=== PATIENT | male | born 1955 | race Two or more races ===

== ENCOUNTER 2024-10-05 08:16 | Inpatient (IN) | payer OTHER, MEDICARE, MEDICAID ==
[~2024-10-05] VITALS: Ht 175.3 cm; Wt 96.9 kg
--- NOTE | 2024-10-05 08:30 | ED.PDOC ---
GI ASSESSMENT HPI Comments 69 y.o male with PMH of liver cirrhosis, presents to the ED for a chief complaint of abdominal pain associated with distention. EMS reports patient is coming [facility] with abdominal pain for unknown amount of time. Patient is a poor historian, is unsure of when his symptoms presented and denies any other associating symptoms. Patient does present with ground coffee emesis on gown and vann. Chief Complaint: Abdominal Pain Time Seen by MD: 08:22 Reviewed Notes: Nurses Notes, Eating Disorder Psychologist Notes, Medications, Allergies Allergies: Coded Allergies: NO KNOWN ALLERGIES (Unverified , 10/05/24) Information Source: Patient, Emergency Med Personnel Mode of Arrival: EMS Timing: Other Duration: Since onset Quality: Aching Vomitus: None Stool: Normal Severity: Moderate Recent: None Recent Hx of: None Pain Location: Diffuse Modifying Factors: Nothing Associated sign and symptoms: Abdominal Pain Past Medical History PAST MEDICAL HISTORY: Liver Family History Family History: Reviewed,noncontributory to illness Social History Smoker: Non-Smoker Alcohol: Denies ETOH Use Drugs: Denies Drug Use Lives In: Assisted Care Constitutional: denies: chills, diaphoresis, fatigue, fever, malaise, sweats, weakness, others EENTM: denies: blurred vision, double vision, ear bleeding, ear discharge, ear drainage, ear pain, ear ringing, eye pain, eye redness, hearing loss, mouth pain, mouth swelling, nasal discharge, nose bleeding, nose congestion, nose pain, photophobia, tearing, throat pain, throat swelling, voice changes, others Respiratory: denies: cough, hemoptysis, orthopnea, SOB at rest, shortness of breath, SOB with excertion, stridor, wheezing, others Cardiovascular: denies: chest pain, dizzy spells, diaphoresis, Dyspnea on exertion, edema, irregular heart beat, left arm pain, lightheadedness, palpitations, PND, syncope, others Gastrointestinal: reports: abdomen distended, abdominal pain; denies: blood streaked bowels, constipated, diarrhea, dysphagia, difficulty swallowing, hematemesis, melena, nausea, poor appetite, poor fluid intake, rectal bleeding, rectal pain, vomiting, others Genitourinary: denies: burning, dysuria, flank pain, frequency, hematuria, incontinence, penile discharge, penile sore, pain, testicle pain, testicle swelling, urgency, others Neurological: denies: dizziness, fainting, headache, left sided numbness, left sided weakness, numbness, paresthesia, pre-existing deficit, right sided numbness, right sided weakness, seizure, speech problems, tingling, tremors, weakness, others Musculoskeletal: denies: back pain, gout, joint pain, joint swelling, muscle pain, muscle stiffness, neck pain, others Integumetry: denies: bruises, change in color, change in hair/nails, dryness, laceration, lesions, lumps, rash, wounds, others Allergic/Immunocompromised: denies: Difficulty Healing, Frequent Infections, Hives, Itching, others Hematologic/Lymphatic: denies: anemia, blood clots, easy bleeding, easy bruising, swollen glands, others Endocrine: denies: excessive hunger, excessive sweating, excessive thirst, excessive urination, flushing, intolerance to cold, intolerance to heat, unexplained weight gain, unexplained weight loss, others Psychiatric: denies: anxiety, bipolar disorder, depression, hopeless, panic disorder, schizophrenia, sleepless, suicidal, others All Other Systems: Reviewed and Negative Physical Exam General Appearance: No Apparent Distress, Normal HEENT: Normal ENT Inspection, Pharynx Normal, TMs Normal Neck: Full Range of Motion, Non-Tender, Normal, Normal Inspection Respiratory: Chest Non-Tender, Lungs Clear, No Accessory Muscle Use, No Respiratory Distress, Normal Breath Sounds Cardiovascular: No Edema, No JVD, No Murmur, No Gallop, Normal Peripheral Pulses, Regular Rate/Rhythm Breast Exam: Deferred Gastrointestinal: Diffuse, Distended, Tenderness Genitalia: Deferred Pelvic: Deferred Rectal: Deferred Extremities: No calf tenderness, Normal capillary refill, Normal inspection, Normal range of motion, Non-tender, No pedal edema Musculoskeletal : Apperance: Normal Neurologic: Alert, equipment technician II-XII nml as Tested, No Motor Deficits, Normal Affect, Normal Mood, No Sensory Deficits Cerebellar Function: Normal Reflexes: Normal Skin: Dry, Normal Color, Warm Lymphatic: No Adenopathy Was a procedure done? Was a procedure done?: No GI differential Dx Differential Diagnosis: Hernia, Hepatitis, Inflammatory BD, Pancreatitis, Dehydration X-Ray, Labs, Meds, VS Vital Signs Date Time Temp Pulse Resp B/P (MAP) Pulse Ox O2 Delivery O2 Flow Rate FiO2 10/05/24 09:00 98.8 143 30 116/77 (90) 94 98.8 10/05/24 09:00 143 30 94 Room Air* 0 21 10/05/24 08:18 155 10/05/24 08:16 98.8 127 18 154/82 (106) 94 Lab Test 10/05/24 11:10 10/05/24 10:06 10/05/24 08:58 Range/Units Lactic Acid Level 2.9 *H 2.9 *H 0.4-2.0 mmol/L Troponin I High Sensitivity 8 8 </=54 ng/L White Blood Count 18.7 H 4.4-10.8 10^3/uL Red Blood Count 5.91 H 4.5-5.90 10^6/uL Hemoglobin 18.4 H 13.5-17.5 g/dL Hematocrit 54.7 H 41.0-53.0 % Mean Corpuscular Volume 92.5 80.0-100.0 fL Mean Corpuscular Hemoglobin 31.2 28.0-32.0 pg Mean Corpuscular Hemoglobin Concent 33.7 32.0-36.0 g/dL Red Cell Distribution Width 14.8 H 11.8-14.3 % Platelet Count 299 140-450 10^3/uL Mean Platelet Volume 6.7 L 6.9-10.8 fL Neutrophils (%) (Auto) 80.0 37.0-80.0 % Lymphocytes (%) (Auto) 11.3 10.0-50.0 % Monocytes (%) (Auto) 8.6 0.0-12.0 % Eosinophils (%) (Auto) 0.0 0.0-7.0 % Basophils (%) (Auto) 0.1 0.0-2.0 % Neutrophils # (Auto) 15.0 H 1.6-8.6 10 ^3/uL Lymphocytes # (Auto) 2.1 0.4-5.4 10 ^3/uL Monocytes # (Auto) 1.6 H 0-1.3 10 ^3/uL Eosinophils # (Auto) 0 0-0.8 10 ^3/uL Basophils # (Auto) 0 0-0.2 10 ^3/uL Nucleated Red Blood Cells 0.2 % Prothrombin Time 12.2 H 9.3-11.8 sec Prothrombin Time INR 1.16 H 0.9-1.15 Activated Partial Thromboplast Time 28.0 24.5-34.5 SEC Sodium Level 144 136-145 mmol/L Potassium Level 4.3 3.5-5.1 mmol/L Chloride Level 101 98-107 mmol/L Carbon Dioxide Level 29 20-31 mmol/L Anion Gap 14 5-15 Blood Urea Nitrogen 41 H 9-23 mg/dL Creatinine 1.75 H 0.700-1.30 mg/dL Glomerular Filtration Rate Calc 42 >90 mL/min BUN/Creatinine Ratio 23.4 H 10.0-20.0 Serum Glucose 180 H 74-106 mg/dL Calcium Level 10.6 H 8.7-10.4 mg/dL Magnesium Level 2.3 1.6-2.6 mg/dL Total Bilirubin 1.6 H 0.2-1.0 mg/dL Aspartate Amino Transferase (AST) 23 13-40 U/L Alanine Aminotransferase (ALT) 47 H 7-40 U/L Alkaline Phosphatase 138 H 46-116 U/L Ammonia 37 H 11-32 umol/L Lactate Dehydrogenase 183 120-246 U/L Total Protein 8.3 H 5.7-8.2 g/dL Albumin 4.3 3.2-4.8 g/dL Lipase 25 12-53 U/L Current Medications Medications (Trade) Dose Ordered Sig/Jake Route Start Time Stop Time Status Last Admin Ondansetron HCl (Zofran) 4 mg ONCE ONCE IV 10/05/24 08:30 10/05/24 08:31 DC 10/05/24 08:48 Albumin Human 50 ml @ 100 mls/hr ONCE ONCE IV 10/05/24 09:30 10/05/24 09:59 DC 10/05/24 09:56 Sodium Chloride 1,000 ml @ 1,000 mls/hr Q1H ONCE IV 10/05/24 09:30 10/05/24 10:29 DC 10/05/24 09:57 X-Ray, Labs, Meds, VS Comment This 69-year-old male who [facility] a [facility] presents secondary to abdominal distention and what appears to be hematemesis. Here, he was noted to be hemoconcentrated with a white count of 19, hemoglobin 8.4. He was also noted to have a small-bowel obstruction, cirrhosis, left pleural effusion L4 fracture. Secondary to these multiple life-threatening health issues, the patient will be admitted for further workup and management. Time of 1ST Reevaluation: 08:26 Reevaluation 1ST: Unchanged Patient Education/Counseling: Diagnosis, Treatment, Prognosis Family Education/Counseling: No Family Present Additional Information The following tests were ordered, and results were reviewed by me: LAB, EKG, CT ABD Additional Information was gathered from interviewing the following independent historians: EMS I reviewed and agreed with the following test results read by other providers: CT I discussed treatment and results with medical personnel [place] [id number] Ph: [phone] DIAGNOSTIC IMAGING Diagnostic Imaging Report : [id number] Signed PATIENT: ELISA PARRA ACCT: [id number] UNIT: [id number] : 1955 LOC: ER ROOM / BED: / AGE / SEX: 69 / M ADM STATUS: REG ER SERVICE 3 ORDERING PHYSICIAN: DEEP COX MD PROCEDURE(s): ABPL - CT AB PEL WO CON-NO ORAL OR IV REASON: abdomenal pain ORDER NUMBER(s): [id number], ACCESSION NUMBER(s): [id number] CLINICAL INFORMATION: 69 years old, Male; abdomenal pain. TECHNIQUE: Axial CT images of the abdomen and pelvis were obtained without IV contrast. Coronal and sagittal reformatted images were obtained, reviewed, and stored. Evaluation of the parenchymal organs is limited without IV contrast. Evaluation of the bowel and mesentery is limited without oral contrast. All CT scans at this medical facility are performed using dose modulation techniques as appropriate to a performed exam including the following: Automated exposure control was utilized; adjustment of the MA and/or KV according to patient size; and use of iterative reconstruction technique. CTDIvol = 18.89 mGy DLP = 1201.94 mGy-cm COMPARISON: None FINDINGS: Lung bases: Small right and trace left pleural effusions with overlying atelectasis and/or consolidation. Liver: Nodular contour of the liver with relative enlargement of the left hepatic lobe, may be seen with cirrhosis in the appropriate clinical setting. Small amount of perihepatic ascites. Biliary: Small calcified gallstones in the gallbladder. Gallbladder is mildly distended. Spleen: Unremarkable. Pancreas: Moderately atrophic pancreas. Adrenal glands: Unremarkable. No mass. Kidneys: No hydronephrosis. No renal or ureteral calculi. Aorta/Vascular: No aneurysm or significant calcification. Retroperitoneum: No mass or lymphadenopathy. Bowel/mesentery: Markedly distended stomach and dilated proximal small bowel loops with nondilated distal small bowel loops. Possible transition point in the right hemiabdomen. Appendix is visualized and appears unremarkable. Pelvic organs: Grossly unremarkable. Bladder: Bladder is underdistended and not well evaluated. Abdominal wall: No mass or hernia. Bones: Compression fracture of the L4 vertebral body with up to 70% loss of height, with chronic appearance. IMPRESSION: 1. Suspected small bowel obstruction with possible transition point in the right hemiabdomen 2. Cholelithiasis. Gallbladder is mildly distended. Correlate with clinical findings. If clinically indicated, ultrasound could be obtained to further characterize. 3. Cirrhotic liver morphology. Mild perihepatic ascites. 4. Partially visualized small right and trace left pleural effusions with overlying atelectasis and/or consolidation. 5. Chronic appearing compression fracture of the L4 vertebral body. 6. Additional findings as detailed above. ATED BY: AXEL KEVIN DO DICTATED DATE/TIME: 10/05/24947 SIGNED BY: AXEL KEVIN DO SIGNED DATE/TIME: 10/05/24947 CC: Departure 1 Departure Time of Disposition: 12:35 Impression: Primary Impression: SBO (small bowel obstruction) Additional Impressions: Lumbar vertebral fracture Cirrhosis Ascites Hematemesis Dehydration Disposition: ADMITTED INPATIENT Admit to: Tele Condition: Critical Critical Care Note Critical Care Time?: No Stability Stability form required: No I personally scribed for DEEP COX MD ([email or web address]) on 10/05/24 at 08:30. Electronically submitted by Maricruz Cummings ([facility]). I personally scribed for DEEP COX MD ([email or web address]) on 10/05/24 at 08:51. Electronically submitted by Maricruz Cummings ([facility]). I personally scribed for DEEP COX MD ([email or web address]) on 10/05/24 at 10:47. Electronically submitted by Maricruz Cummings ([facility]). DEEP COX MD Oct 05, 2024 08:30
[2024-10-05] MEDS: ONDANSETRON HCL 4 MG/2 ML VIAL IV ONE (08:48)
[2024-10-05 09:00] VITALS: PULSE 143; RESP 30; O2SAT 94
[2024-10-05 09:36] LABS: Basophils # (auto) 0 10 ^3/uL (0-0.2); Eosinophils # (auto) 0 10 ^3/uL (0-0.8); Hemoglobin 18.4 g/dL (13.5-17.5); Monocytes # (auto) 1.6 10 ^3/uL (0-1.3)
[2024-10-05 09:38] LABS: Basophils % (auto) 0.1 % (0.0-2.0); Hematocrit 54.7 % (41.0-53.0); Lymphocytes # (auto) 2.1 10 ^3/uL (0.4-5.4); Lymphocytes % (auto) 11.3 % (10.0-50.0); Mean Corpuscular Hemoglobin 31.2 pg (28.0-32.0); Mean Corpuscular Hgb Conc. 33.7 g/dL (32.0-36.0); Mean Corpuscular Volume 92.5 fL (80.0-100.0); Monocytes % (auto) 8.6 % (0.0-12.0); Nucleated Red Blood Cells % 0.2 %; Platelet Count (auto) 299 10^3/uL (140-450); Red Blood Cells 5.91 10^6/uL (4.5-5.90); Red Cell Distribution Width 14.8 % (11.8-14.3); White Blood Cell 18.7 10^3/uL (4.4-10.8)
[2024-10-05 09:44] LABS: Albumin 4.3 g/dL (3.2-4.8); Anion Gap 14 (5-15); Aspartate Aminotransferase 23 U/L (13-40); BUN/Creatinine Ratio 23.4 (10.0-20.0); Carbon Dioxide 29 mmol/L (20-31); Chloride 101 mmol/L (98-107); Magnesium 2.3 mg/dL (1.6-2.6); Potassium 4.3 mmol/L (3.5-5.1); Sodium 144 mmol/L (136-145)
[2024-10-05 09:46] LABS: Alanine Aminotransferase 47 U/L (7-40); Alkaline Phosphatase 138 U/L (46-116); Bilirubin, Total 1.6 mg/dL (0.2-1.0); Blood Urea Nitrogen 41 mg/dL (9-23); Calcium 10.6 mg/dL (8.7-10.4); Glucose 180 mg/dL (74-106); Total Protein 8.3 g/dL (5.7-8.2)
[2024-10-05 09:48] LABS: INR 1.16 (0.9-1.15); Prothrombin Time 12.2 sec (9.3-11.8)
[2024-10-05 09:51] LABS: Lactic Acid w/Reflex 2.9 mmol/L (0.4-2.0)
--- NOTE | 2024-10-05 09:51 | DVH ---
CLINICAL INFORMATION: 69 years old, Male; abdomenal pain. TECHNIQUE: Axial CT images of the abdomen and pelvis were obtained without IV contrast. Coronal and sagittal reformatted images were obtained, reviewed, and stored. Evaluation of the parenchymal organs is limited without IV contrast. Evaluation of the bowel and mesentery is limited without oral contra st. All CT scans at this medical facility are performed using dose modulation techniques as appropria te to a performed exam including the following: Automated exposure control was utilized; adjustment o f the MA and/or KV according to patient size; and use of iterative reconstruction technique. CTDIvol = 18.89 mGy DLP = 1201.94 mGy-cm COMPARISON: None FINDINGS: Lung bases: Small right and trace left pleural effusions with overlying atelectasis and/or consolidat ion. Liver: Nodular contour of the liver with relative enlargement of the left hepatic lobe, may be seen with cirrhosis in the appropriate clinical setting. Small amount of perihepatic ascites. Biliary: Small calcified gallstones in the gallbladder. Gallbladder is mildly distended. Spleen: Unremarkable. Pancreas: Moderately atrophic pancreas. Adrenal glands: Unremarkable. No mass. Kidneys: No hydronephrosis. No renal or ureteral calculi. Aorta/Vascular: No aneurysm or significant calcification. Retroperitoneum: No mass or lymphadenopathy. Bowel/mesentery: Markedly distended stomach and dilated proximal small bowel loops with nondilated di stal small bowel loops. Possible transition point in the right hemiabdomen. Appendix is visualized a nd appears unremarkable. Pelvic organs: Grossly unremarkable. Bladder: Bladder is underdistended and not well evaluated. Abdominal wall: No mass or hernia. Bones: Compression fracture of the L4 vertebral body with up to 70% loss of height, with chronic appe arance. IMPRESSION: 1. Suspected small bowel obstruction with possible transition point in the right hemiabdomen 2. Cholelithiasis. Gallbladder is mildly distended. Correlate with clinical findings. If clinicall y indicated, ultrasound could be obtained to further characterize. 3. Cirrhotic liver morphology. Mild perihepatic ascites. 4. Partially visualized small right and trace left pleural effusions with overlying atelectasis and/o r consolidation. 5. Chronic appearing compression fracture of the L4 vertebral body. 6. Additional findings as detailed above.
[2024-10-05] MEDS: ALBUMIN 25% 50 ML IV ONE (09:56)
[2024-10-05] MEDS: SODIUM CHLORIDE 0.9% 1,000 ML IV ONE ×2 (09:57→16:29)
[2024-10-05 10:23] LABS: Lipase 25 U/L (12-53)
[2024-10-05] MEDS: metroNIDAZOLE 500MG/100ML 100 ML IV ONE (16:30)
--- NOTE | 2024-10-05 16:56 | DVH ---
EXAM: XY CHEST PORTABLE Indication: sepsis Technique: Single frontal view of the chest was obtained Comparison: None FINDINGS: Lines and Tubes: None Lungs: Pulmonary edema. Pleura: Trace left pleural effusion. No pneumothorax. Cardiomediastinal contours: Cardiomegaly. Bones: No acute osseous abnormality. IMPRESSION: Cardiomegaly with pulmonary edema. Trace left pleural effusion.
[2024-10-05] MEDS: CEFEPIME 2GM/50ML NS 50 ML IV ONE (17:00)
[2024-10-05] MEDS: PANTOPRAZOLE 80 MG in SODIUM CHL 0.9% 100 ML IV ONE (17:17)
[2024-10-05 17:34] LABS: Hematocrit 52.9 % (41.0-53.0); Hemoglobin 17.2 g/dL (13.5-17.5)
[2024-10-05] MEDS: PANTOPRAZOLE 40mg/50ML NS AE 50 ML IV ONE (17:36)
--- NOTE | 2024-10-05 18:02 | DVHHPRES ---
History of Present Illness Resident Creating Document: PARK SARMIENTO RESIDENT History of Present Illness 69-year-old male patient with past medical history of schizophrenia, hypothyroidism, arthritis, hyperlipidemia presented with complaints of coffee- ground emesis and abdominal distention. [facility] and there it was noticed that patient was started having vomiting there is coffee-ground in color, and after that patient was sent to ER. On initial evaluation, as per the nurse patient was covered in coffee-ground emesis. Patient is currently confused, alert and oriented x2, and is a poor historian. According to the patient, he had one bowel movement yesterday and is passing gas. Review of system could not be done as patient is poor historian Past medical history Schizophrenia, hypothyroidism, arthritis, hyperlipidemia Past surgical history Denied Medication history Atorvastatin, levothyroxine, Seroquel, lorazepam Social history Patient mentioned that in the past, he was doing "all kinds of drugs" He doesn't have any family contact Review of Systems Allergies: Coded Allergies: NO KNOWN ALLERGIES (Unverified , 10/05/24) Medications Current Medications Medications Dose Ordered Sig/Jake Route Start Time Stop Time Status Last Admin Dose Admin Octreotide Acetate 500 mcg/ Sodium Chloride 100 ml @ 10 mls/hr Q10H IV 10/05/24 16:15 Cefepime HCl 50 ml @ 12.5 mls/hr Q8H IV 10/06/24 04:00 Metronidazole 100 ml @ 100 mls/hr Q8H IV 10/06/24 00:00 Exam Vital Signs Vital Signs Date Time Temp Pulse Resp B/P (MAP) Pulse Ox O2 Delivery O2 Flow Rate FiO2 10/05/24 12:00 113 26 113/52 (72) 92 10/05/24 09:00 98.8 98.8 10/05/24 09:00 Room Air* 0 21 Exam Examination General Appearance: Alert, Oriented X2, confused Respiratory: Clear to auscultation, Normal air movement Cardiovascular: Regular rate, Normal S1, Normal S2 Abdominal: Abdominal distention, with dilated weight is near barium umbilical region, right upper quadrant and left lower quadrant tenderness Extremities: No cyanosis, No edema, Normal pulses, No tenderness/swelling Skin: No rashes, No breakdown Neuro: Normal speech, tone Labs/Xrays Labs Test 10/05/24 17:03 10/05/24 11:10 10/05/24 10:06 10/05/24 08:58 Range/Units Lactic Acid Level 2.9 *H 0.4-2.0 mmol/L Troponin I High Sensitivity 8 </=54 ng/L White Blood Count 18.7 H 4.4-10.8 10^3/uL Red Blood Count 5.91 H 4.5-5.90 10^6/uL Mean Corpuscular Volume 92.5 80.0-100.0 fL Mean Corpuscular Hemoglobin 31.2 28.0-32.0 pg Mean Corpuscular Hemoglobin Concent 33.7 32.0-36.0 g/dL Red Cell Distribution Width 14.8 H 11.8-14.3 % Platelet Count 299 140-450 10^3/uL Mean Platelet Volume 6.7 L 6.9-10.8 fL Neutrophils (%) (Auto) 80.0 37.0-80.0 % Lymphocytes (%) (Auto) 11.3 10.0-50.0 % Monocytes (%) (Auto) 8.6 0.0-12.0 % Eosinophils (%) (Auto) 0.0 0.0-7.0 % Basophils (%) (Auto) 0.1 0.0-2.0 % Neutrophils # (Auto) 15.0 H 1.6-8.6 10 ^3/uL Lymphocytes # (Auto) 2.1 0.4-5.4 10 ^3/uL Monocytes # (Auto) 1.6 H 0-1.3 10 ^3/uL Eosinophils # (Auto) 0 0-0.8 10 ^3/uL Basophils # (Auto) 0 0-0.2 10 ^3/uL Nucleated Red Blood Cells 0.2 % Prothrombin Time 12.2 H 9.3-11.8 sec Prothrombin Time INR 1.16 H 0.9-1.15 Activated Partial Thromboplast Time 28.0 24.5-34.5 SEC Sodium Level 144 136-145 mmol/L Potassium Level 4.3 3.5-5.1 mmol/L Chloride Level 101 98-107 mmol/L Carbon Dioxide Level 29 20-31 mmol/L Anion Gap 14 5-15 Blood Urea Nitrogen 41 H 9-23 mg/dL Creatinine 1.75 H 0.700-1.30 mg/dL Glomerular Filtration Rate Calc 42 >90 mL/min BUN/Creatinine Ratio 23.4 H 10.0-20.0 Serum Glucose 180 H 74-106 mg/dL Calcium Level 10.6 H 8.7-10.4 mg/dL Magnesium Level 2.3 1.6-2.6 mg/dL Total Bilirubin 1.6 H 0.2-1.0 mg/dL Aspartate Amino Transferase (AST) 23 13-40 U/L Alanine Aminotransferase (ALT) 47 H 7-40 U/L Alkaline Phosphatase 138 H 46-116 U/L Ammonia 37 H 11-32 umol/L Lactate Dehydrogenase 183 120-246 U/L Total Protein 8.3 H 5.7-8.2 g/dL Albumin 4.3 3.2-4.8 g/dL Lipase 25 12-53 U/L Assessment/Plan Assessment/Plan Assessment/plan Cardiology #hyperlipidemia -will resume home Meds once Neurology # Altered level of consciousness likely due to metabolic encephalopathy due to ?sepsis/hepatic encephalopathy -ammonia levels -IV fluids, IV antibiotics Respiratory #Acute hypoxic respiratory failure likely due to sepsis -IV antibiotics -sputum culture GI # Upper GI bleed -IV fluids -hemoglobin currently 18.4 -monitor H and H -GI consult -Protonix drip -octreotide drip considering liver cirrhosis seen on CT # Suspected small bowel obstruction with possible transition point in the right esdras-abdomen -seen on CT -NPO -Surgical consult -Small bowel follow with Gastrografin as recommended by the surgeon # Cholelithiasis -seen on CT # Liver cirrhosis -seen on CT Musculoskeletal #Chronic appearing compression fracture of the L4 vertebral body. -pt not symptomatic. #History of arthritis Psychiatry #history of schizophrenia Endocrine #hypothyroidism will resume home Meds once patient is started on diet Lines Peripheral IV Drips Pantoprazole drip Octeorotide Code status , Full code as of now, since patient is confused and no family con tact Case discussion with Dr Braden Gregg discussed with: Patient, Other My Orders Orders - PARK SARMIENTO RESIDENT Procedure Category Date Status Time Pantoprazole PHA 10/05/24 In Process 40mg/50ml Ns Ae 16:15 Sodium Chl 0.9% PHA 10/05/24 In Process (So... W/Octreotide 16:15 Cefepime 2gm/50ml Ns PHA 10/05/24 In Process (Maxipime 2gm/50ml) 16:15 Urinalysis LAB 10/05/24 Logged 16:04 Urine Bacterial HENRY 10/05/24 Logged Culture 16:04 Blood Culture HENRY 10/05/24 In Process 16:04 * [facility] Medical Detailist CONS 10/05/24 Transmitted 16:04 * Surgical Consult CONS 10/05/24 Transmitted Hemoglobin & LAB 10/05/24 In Process Hematocrit 16:04 Admit ADMIT 10/05/24 Transmitted 16:04 Notify Of Changes ERLINDA 10/05/24 In Process From Base 16:04 Emergency Dysrhythmia ERLINDA 10/05/24 In Process Protocol 16:04 Rhythm Strips Once ERLINDA 10/05/24 In Process Every Shift 16:04 Linen Sorter For ERLINDA 10/05/24 In Process 24 Hours 16:04 Chest Portable XY 10/05/24 Resulted 16:04 Npo (Nothing By DIET 10/05/24 Transmitted Mouth) Diet Dinner Metronidazole PHA 10/06/24 In Process 500mg/100ml (Flagyl 00:00 Cefepime 2gm/50ml Ns PHA 10/06/24 In Process (Maxipime 2gm/50ml) 04:00 Small Bowel Series-W XY 10/05/24 Logged Barium 17:11 Date of Service: Oct 05, 2024 Billing Provider: YUNIEL POLK MD Common Visit Codes: [id number] INP/OBS CARE (HIGH) PARK SARMIENTO RESIDENT Oct 05, 2024 18:02 YUNIEL POLK MD Oct 08, 2024 08:45
[2024-10-05] MEDS: OCTREOTIDE ACETATE 100 MCG in SODIUM CHL 0.9% 50 ML IV ONE (18:12)
[2024-10-05] MEDS: OCTREOTIDE ACETATE 100 MCG/ML VL ONE (18:17)
[2024-10-05] MEDS: OCTREOTIDE ACETATE 500 MCG in SODIUM CHL 0.9% 99 ML IV SCH (18:39)
[2024-10-05 21:09] LABS: COVID19 ANTIGEN SOFIA FIA NEGATIVE (NEGATIVE)
[2024-10-05 21:11] LABS: Rapid Influenza A Negative (Negative); Rapid Influenza B Negative (Negative)
[2024-10-05] MEDS ORDERED: VANCOMYCIN PER PHARMACY 0 MG IV SCH (23:15)
[2024-10-05] MEDS: VANCOMYCIN 1GM/250ML KIT 250 ML IV SCH (23:50)
[2024-10-05] MEDS: PANTOPRAZOLE 40mg/50ML NS AE 50 ML IV SCH (23:51)
[2024-10-06] MEDS: metroNIDAZOLE 500MG/100ML 100 ML IV SCH (00:10)
[2024-10-06] MEDS: OCTREOTIDE ACETATE 100 MCG/ML VL ONE (01:51)
[2024-10-06] MEDS: CEFEPIME 2GM/50ML NS 50 ML IV SCH (03:36)
[2024-10-06 05:01] LABS: Potassium 3.9 mmol/L (3.5-5.1)
[2024-10-06 05:02] LABS: Anion Gap 8 (5-15); Calcium 9.8 mg/dL (8.7-10.4)
[2024-10-06 05:06] LABS: Basophils # (auto) 0 10 ^3/uL (0-0.2); Basophils % (auto) 0.1 % (0.0-2.0); Carbon Dioxide 33 mmol/L (20-31); Chloride 108 mmol/L (98-107); Eosinophils # (auto) 0 10 ^3/uL (0-0.8); Eosinophils % (auto) 0.1 % (0.0-7.0); Hematocrit 48.9 % (41.0-53.0); Hemoglobin 16.3 g/dL (13.5-17.5); Lymphocytes # (auto) 1.7 10 ^3/uL (0.4-5.4); Lymphocytes % (auto) 11.3 % (10.0-50.0); Mean Corpuscular Hemoglobin 31.3 pg (28.0-32.0); Mean Corpuscular Hgb Conc. 33.3 g/dL (32.0-36.0); Mean Corpuscular Volume 94.1 fL (80.0-100.0); Monocytes # (auto) 1.5 10 ^3/uL (0-1.3); Neutrophils # (auto) 11.5 10 ^3/uL (1.6-8.6); Neutrophils % (auto) 78.5 % (37.0-80.0); Nucleated Red Blood Cells % 0.2 %; Platelet Count (auto) 240 10^3/uL (140-450); Red Cell Distribution Width 14.5 % (11.8-14.3); Sodium 149 mmol/L (136-145); White Blood Cell 14.7 10^3/uL (4.4-10.8)
[2024-10-06 05:07] LABS: BUN/Creatinine Ratio 28.6 (10.0-20.0); Blood Urea Nitrogen 30 mg/dL (9-23); Glucose 142 mg/dL (74-106)
[2024-10-06 05:08] LABS: Magnesium 2.5 mg/dL (1.6-2.6)
[2024-10-06 07:32] VITALS: PULSE 109; RESP 20; O2SAT 95
--- NOTE | 2024-10-06 10:10 | DVH ---
CHEST RADIOGRAPH Indication: NGT PLACEMENT CONFIRMATION Technique: Single frontal view of the chest was obtained COMPARISON: XY CHEST PORTABLE on DOS: 10/05/24 FINDINGS: Lines and Tubes: Nasogastric tube in satisfactory position. Lungs: Clear Pleura: No effusion. No pneumothorax. Cardiomediastinal contours: Unremarkable Bones: Unremarkable IMPRESSION: Nasogastric tube in satisfactory position.
--- NOTE | 2024-10-06 10:32 | DVH ---
CHEST RADIOGRAPH Indication: NG TUBE PLACEMENT CONFIRMATION REPEAT Technique: Single frontal view of the chest was obtained COMPARISON: XY CHEST XRAY 1 VIEW on DOS: 10/06/24, XY CHEST PORTABLE on DOS: 10/05/24 FINDINGS: Lines and Tubes: In G tube ends in the body of the stomach. Emil gaseous distention of the stomach. Bibasilar atelectasis. Moderate thoracic spondylosis. Elevated right hemidiaphragm. Lungs: Clear Pleura: No effusion. No pneumothorax. Cardiomediastinal contours: Unremarkable Bones: Unremarkable IMPRESSION: 1. And G tube ends in the body of the stomach. Gaseous distention of the stomach.
[2024-10-06] MEDS: PANTOPRAZOLE 40 MG/10 ML VIAL INJ IV SCH (11:32)
--- NOTE | 2024-10-06 12:39 | DVHPNRES ---
Progress Note Date Seen: Oct 06, 2024 Resident Creating Document: LATHA JAVED RESIDENT Medical Necessity Reason Pt with a Central, PICC or Fol: No Subjective Review of Systems 69-year-old male patient with past medical history of schizophrenia, hypothyroidism, arthritis, hyperlipidemia presented with complaints of coffee- ground emesis and abdominal distention. Patient is currently living [facility] and there it was noticed that patient was started having vomiting there is coffee-ground in color, and after that patient was sent to ER. On initial evaluation, as per the nurse patient was covered in coffee-ground emesis. Patient is currently confused, alert and oriented x2, and is a poor historian. Patient is unsure when he had last BM, notes that he is unable to pass flatus Review of system could not be done as patient is poor historian Past medical history Liver cirrhosis, Schizophrenia, hypothyroidism, arthritis, hyperlipidemia Past surgical history Denied Medication history Atorvastatin, levothyroxine, Seroquel, lorazepam, acetaminophen Social history Patient mentioned that in the past, he was doing "all kinds of drugs" He doesn't have any family contact Objective vital signs Vital Sign Date Time Temp Pulse Resp B/P (MAP) Pulse Ox O2 Delivery O2 Flow Rate FiO2 10/06/24 10:05 125 20 115/47 (69) 93 10/06/24 09:00 98.3 98.3 10/06/24 07:32 Nasal Cannula* 4 36 Total Intake and Output 10/05/24 10/05/24 10/06/24 15:00 23:00 07:00 Intake Total 411 ml 625 ml Balance 411 ml 625 ml medications Current Medications Medications Dose Ordered Sig/Jake Route Start Time Stop Time Status Last Admin Dose Admin Cefepime HCl 50 ml @ 12.5 mls/hr Q8H IV 10/06/24 04:00 10/06/24 11:38 12.5 MLS/HR Metronidazole 100 ml @ 100 mls/hr Q8H IV 10/06/24 00:00 10/06/24 09:47 100 MLS/HR Vancomycin HCl 0 ml @ 0 mls/hr UD IV 10/05/24 23:15 Pantoprazole Sodium 40 mg BID IV 10/06/24 10:00 10/06/24 11:32 40 MG Vancomycin HCl 250 ml @ 250 mls/hr Q12H IV 10/06/24 14:00 Examination General Appearance: Cooperative. Well developed. Well nourished. NAD Head Exam: Normal inspection Neck Exam: Normal inspection. Non-tender. Normal alignment Pulmonary/Respiratory: Chest non-tender. Clear bilateral breath sounds, no crackles, no wheezing. Cardiovascular/Chest: Regular rate and rhythm. No murmurs. No JVD. Peripheral Pulses: 2+ Radial (R). 2+ Radial (L). 2+ Pedal (R). 2+ Pedal (L) Abdominal Exam: Decreased bowel sounds. Distended abdomen, no visible veins, some tenderness to palpation No hepatospenomegaly. No masses Ankle Exam: Negative ankle edema Lower extremities: Negative lower extremity edema Neuro/Mental Status: A&O x2. Coherent. Skin Exam: Normal inspection. Normal color. Warm. Dry laboratory and microbiology Laboratory Tests 10/06/24 04:17 Test 10/06/24 04:17 Range/Units Serum Glucose 142 H 74-106 mg/dL Microbiology Date/Time Source Procedure Growth Status 10/05/24 08:58 Blood Blood Culture - Preliminary NO GROWTH AFTER 24 HOURS OF INCUBATION. Resulted Labs and/or images reviewed: Labs reviewed by me, Image(s) reviewed by me Problem List/Assessment/Plan Problem List/Assessment/Plan Small-bowel obstruction Questionable upper GI bleed Cardiology #hyperlipidemia -will resume home Meds once Neurology # Altered level of consciousness likely due to metabolic encephalopathy due to ?sepsis/hepatic encephalopathy -ammonia levels -IV fluids, IV antibiotics Respiratory #Acute hypoxic respiratory failure likely due to sepsis -IV antibiotics -sputum culture GI # questionable Upper GI bleed -IV fluids -hemoglobin currently 18.4 -monitor H and H -GI consult -stopped Protonix drip, started on IV Protonix 40 b.i.d. -stopped octreotide drip considering liver cirrhosis seen on CT # small bowel obstruction with possible transition point in the right esdras- abdomen -seen on CT -NPO -Surgical consult -Small bowel follow with Gastrografin as recommended by the surgeon - inserted NG tube, drained 1000 mL in the 1st 30 minutes # Cholelithiasis -seen on CT # Liver cirrhosis -seen on CT Musculoskeletal #Chronic appearing compression fracture of the L4 vertebral body. -pt not symptomatic. #History of arthritis Psychiatry #history of schizophrenia Endocrine #hypothyroidism will resume home Meds once patient is started on diet Lines Peripheral IV Code status , Full code as of now, since patient is confused and no family contact Case discussion with Dr Mercedes Plan discussed with: Patient, Other (RN) Date of Service: Oct 06, 2024 Billing Provider: REBEKA MERCEDES MD Common Visit Codes: [id number] INP/OBS CARE(HIGH) LATHA JAVED RESIDENT Oct 06, 2024 12:39 REBEKA MERCEDES MD Oct 07, 2024 10:38
[2024-10-06] MEDS ORDERED: ACET-2058 PO (15:50)
[2024-10-06] MEDS ORDERED: MULT-1018 PO (15:50)
[2024-10-06] MEDS ORDERED: LEVO25TA6 PO (15:50)
[2024-10-06] MEDS ORDERED: ASCO500T11 PO (15:50)
[2024-10-06] MEDS ORDERED: ATOR20TA PO (15:50)
[2024-10-06] MEDS ORDERED: DOCU-94 PO (15:50)
[2024-10-06] MEDS ORDERED: QUET50TA PO (15:50)
[2024-10-06] MEDS ORDERED: TEMA15CA2 PO (15:52)
[2024-10-06] MEDS: VANCOMYCIN 1GM/250ML KIT 250 ML IV SCH (16:02)
[2024-10-06] MEDS: IBUPROFEN 400 MG TAB PO ONE (17:48)
[2024-10-06] MEDS: D5W/SOD CHL 0.45% 1,000 ML IV SCH (18:56)
[2024-10-06] MEDS: LIDOCAINE VISCOUS 2% 15ML UD PO ONE (18:57)
[2024-10-06] MEDS ORDERED: IBUPROFEN 400 MG TAB PO PRN (19:00)
[2024-10-06 19:03] LABS: Hematocrit 47.6 % (41.0-53.0); Hemoglobin 15.4 g/dL (13.5-17.5)
[2024-10-06 20:00] VITALS: PULSE 109; PULSE 91; RESP 15; O2SAT 98
[2024-10-06] MEDS: GASTROGRAFIN 120 ML SOL ONE (20:22)
[2024-10-06 20:24] LABS: Urine Bacteria FEW /hpf (None Seen); Urine Blood Negative /uL (Negative); Urine Clarity Clear (Clear); Urine Color Yellow (Yellow); Urine Mucus FEW (None Seen); Urine Protein, UAD TRACE (Negative); Urine Specific Gravity 1.024 (1.001-1.035); Urine Squamous Epithelial Cell None Seen /hpf (<5); Urine Urobilinogen Normal (Negative); Urine WBC 5 /hpf (0 - 3)
--- NOTE | 2024-10-06 20:57 | DVH ---
CHEST RADIOGRAPH Indication: NG TUBE PLACEMENMT CONFIRMATION 3RD TIME Technique: Single frontal view of the chest was obtained Comparison: XY CHEST XRAY 1 VIEW on DOS: 10/06/24, XY CHEST XRAY 1 VIEW on DOS: 10/06/24, XY CHEST PO RTABLE on DOS: 10/05/24 FINDINGS: Lines and Tubes: Enteric tube in place with the tip below the left diaphragm in the stomach. Lungs: Poor inspiratory effort with bibasilar areas of atelectasis. Pleura: No effusion. No pneumothorax. Cardiomediastinal contours: Unremarkable Bones: No acute osseous abnormality. IMPRESSION: 1. Enteric tube below the left diaphragm in the stomach 2. Poor inspiratory effort with bibasilar areas of atelectasis
[2024-10-06 21:03] LABS: Amphetamine Screen, Urine Neg (NEGATIVE); Barbiturate Scree,Urine Neg (NEGATIVE); Benzodiazephine Screen, Urine Neg (NEGATIVE); Cannabinoid Screen, Urine Neg (NEGATIVE); Cocaine Screen, Urine Neg (NEGATIVE); Opiate Scree,Urine Neg (NEGATIVE); Phencyclidine Screen, Urine Neg (NEGATIVE)
--- NOTE | 2024-10-06 21:30 | DVH ---
Procedure: XY SMALL BOWEL SERIES-W GASTROGRA Reason for study/Clinical History: BOWEL OBSTRUCTION Comparison Study: None available at time of dictation. Technique: Single contrast small bowel series performed. FINDINGS/IMPRESSION: Initial mail order sorter view of the abdomen and pelvis demonstrates a gastrostomy tube projecting over the body of the stomach. Distended stomach and multiple small bowel loops in the abdomen Administration of contrast 60 mL Gastrografin via NG tube. There is no significant movement of contra st beyond the body of the stomach at 4 hours.
--- NOTE | 2024-10-06 21:34 | DVHINCON2 ---
Date of service: Oct 06, [address] Pretty Reason for Consultation Coffee-ground emesis and abdominal distention History of Present Illness 69-year-old male patient with past medical history of schizophrenia, hypothyroidism, arthritis, hyperlipidemia presented with complaints of coffee- ground emesis and abdominal distention. Patient is currently living in [facility] and there it was noticed that patient was started having vomiting there is coffee-ground in color, and after that patient was sent to ER. On initial evaluation, as per the nurse patient was covered in coffee-ground emesis. Currently patient is resting comfortably. There was no further episodes of nausea and vomiting. His abdomen is still distended. Patient is currently confused, alert and oriented x2, and is a poor historian. According to the patient, he had one bowel movement prior to admission and is passing gas. Past Medical History Past medical history Schizophrenia, hypothyroidism, arthritis, hyperlipidemia Tobacco use Past Surgical History Negative Allergies: Coded Allergies: NO KNOWN ALLERGIES (Unverified , 10/05/24) Home Meds Reported Medications Temazepam (Restoril) 15 Mg Cp, 1 CAP PO QPM, #30 CAP 1 Refill 10/06/24 Acetaminophen (Acetaminophen) 160 Mg/5 Ml Danielle, 325 MG PO Q6HPRN, ML 10/06/24 Ascorbic Acid (VITAMIN C TABLET) 500 Mg Tb, 1 TAB PO BID, #60 TAB 10/06/24 Quetiapine Fumerate (Seroquel) 50 Mg Tab, 1 TAB PO BID, #30 TAB 2 Refills 10/06/24 Multiple Vitamin (Multivitamins) Tab, PO DAILY, #90 TAB 3 Refills 10/06/24 Levothyroxine Sodium (Levothyroxine Sodium) 25 Mcg Tab, 1 TAB PO DAILY, #30 TAB 5 Refills 10/06/24 Docusate Sodium (Colace) 100 Mg Cap, 100 MG PO, CAP 10/06/24 Atorvastatin Calcium (Lipitor) 20 Mg Tab, 1 TAB PO DAILY, #90 TAB 1 Refill 10/06/24 Current Medications Current Medications Medications (Trade) Dose Ordered Sig/Jake Route PRN Reason Start Time Stop Time Status Last Admin Cefepime HCl 50 ml @ 12.5 mls/hr Q8H IV 10/06/24 04:00 10/06/24 21:17 Metronidazole 100 ml @ 100 mls/hr Q8H IV 10/06/24 00:00 10/06/24 17:47 Vancomycin HCl 0 ml @ 0 mls/hr UD IV 10/05/24 23:15 Vancomycin HCl 250 ml @ 125 mls/hr Q2H IV 10/05/24 23:15 10/06/24 03:14 DC 10/06/24 01:42 Pantoprazole Sodium 50 ml @ 10 mls/hr Q5H IV 10/05/24 23:15 10/06/24 07:53 DC 10/06/24 04:20 Pantoprazole Sodium (Protonix) 40 mg BID IV 10/06/24 10:00 10/06/24 11:32 Vancomycin HCl 250 ml @ 250 mls/hr Q12H IV 10/06/24 14:00 10/06/24 16:02 Dextrose/Sodium Chloride 1,000 ml @ 125 mls/hr Q8H IV 10/06/24 17:15 10/06/24 23:00 10/06/24 18:56 Ibuprofen (Motrin Tablet) 400 mg Q8HP PRN PO MODERATE PAIN (4-6 PAIN SCALE) 10/06/24 19:00 Vital Signs Vital Signs Date Time Temp Pulse Resp B/P (MAP) Pulse Ox O2 Delivery O2 Flow Rate FiO2 10/06/24 17:00 111 15 66/79 (75) 95 10/06/24 09:00 98.3 98.3 10/06/24 07:32 Nasal Cannula* 4 36 Physical Exam General Appearance: Alert, Oriented X2, confused Respiratory: Clear to auscultation, Normal air movement Cardiovascular: Regular rate, Normal S1, Normal S2 Abdominal: Abdominal distention, mild diffuse tenderness, hypoactive bowel sounds Extremities: No cyanosis, No edema, Normal pulses, No tenderness/swelling Skin: No rashes, No breakdown Neuro: Normal speech, tone Labs/Diagnostic Data Labs Test 10/06/24 19:32 10/06/24 18:12 10/06/24 04:17 10/05/24 20:10 Range/Units Urine Color Yellow Yellow Urine Clarity Clear Clear Urine pH 6.0 5.0-9.0 Urine Specific [place] 1.024 1.001-1.035 Urine Protein Trace H Negative Urine Ketones Trace Negative Urine Blood Negative Negative /uL Urine Nitrite Negative Negative Urine Bilirubin Negative Negative Urine Urobilinogen Normal Negative mg/dL Urine Leukocyte Esterase Negative Negative /uL Urine RBC <1 0 - 3 /hpf Urine WBC 5 0 - 3 /hpf Urine Squamous Epithelial Cells None seen <5 /hpf Urine Bacteria Few H None Seen /hpf Urine Mucus Few None Seen Urine Glucose Normal Normal mg/dL Urine Opiates Screen Neg NEGATIVE Urine Fentanyl Screen Neg NEGATIVE Urine Barbiturates Screen Neg NEGATIVE Urine Phencyclidine Screen Neg NEGATIVE Urine Amphetamines Screen Neg NEGATIVE Urine Benzodiazepines Screen Neg NEGATIVE Urine Cocaine Screen Neg NEGATIVE Urine Cannabinoids Screen Neg NEGATIVE Hemoglobin 15.4 13.5-17.5 g/dL Hematocrit 47.6 41.0-53.0 % Lactic Acid Level 1.5 0.4-2.0 mmol/L Plasma/Serum Blood Alcohol < 3.0 <10 mg/dL White Blood Count 14.7 H 4.4-10.8 10^3/uL Red Blood Count 5.20 4.5-5.90 10^6/uL Mean Corpuscular Volume 94.1 80.0-100.0 fL Mean Corpuscular Hemoglobin 31.3 28.0-32.0 pg Mean Corpuscular Hemoglobin Concent 33.3 32.0-36.0 g/dL Red Cell Distribution Width 14.5 H 11.8-14.3 % Platelet Count 240 140-450 10^3/uL Mean Platelet Volume 6.8 L 6.9-10.8 fL Neutrophils (%) (Auto) 78.5 37.0-80.0 % Lymphocytes (%) (Auto) 11.3 10.0-50.0 % Monocytes (%) (Auto) 10.0 0.0-12.0 % Eosinophils (%) (Auto) 0.1 0.0-7.0 % Basophils (%) (Auto) 0.1 0.0-2.0 % Neutrophils # (Auto) 11.5 H 1.6-8.6 10 ^3/uL Lymphocytes # (Auto) 1.7 0.4-5.4 10 ^3/uL Monocytes # (Auto) 1.5 H 0-1.3 10 ^3/uL Eosinophils # (Auto) 0 0-0.8 10 ^3/uL Basophils # (Auto) 0 0-0.2 10 ^3/uL Nucleated Red Blood Cells 0.2 % Sodium Level 149 #H 136-145 mmol/L Potassium Level 3.9 3.5-5.1 mmol/L Chloride Level 108 H 98-107 mmol/L Carbon Dioxide Level 33 H 20-31 mmol/L Anion Gap 8 5-15 Blood Urea Nitrogen 30 #H 9-23 mg/dL Creatinine 1.05 0.700-1.30 mg/dL Glomerular Filtration Rate Calc 78 >90 mL/min BUN/Creatinine Ratio 28.6 H 10.0-20.0 Serum Glucose 142 H 74-106 mg/dL Calcium Level 9.8 8.7-10.4 mg/dL Magnesium Level 2.5 1.6-2.6 mg/dL Influenza Type A Antigen Negative Negative Influenza Type B Antigen Negative Negative SARS-CoV-2 Antigen (Rapid) Negative NEGATIVE Test 10/05/24 10:06 10/05/24 08:58 Range/Units Troponin I High Sensitivity 8 </=54 ng/L Prothrombin Time 12.2 H 9.3-11.8 sec Prothrombin Time INR 1.16 H 0.9-1.15 Activated Partial Thromboplast Time 28.0 24.5-34.5 SEC Total Bilirubin 1.6 H 0.2-1.0 mg/dL Aspartate Amino Transferase (AST) 23 13-40 U/L Alanine Aminotransferase (ALT) 47 H 7-40 U/L Alkaline Phosphatase 138 H 46-116 U/L Ammonia 37 H 11-32 umol/L Lactate Dehydrogenase 183 120-246 U/L Total Protein 8.3 H 5.7-8.2 g/dL Albumin 4.3 3.2-4.8 g/dL Lipase 25 12-53 U/L Microbiology Date/Time Source Procedure Growth Status 10/05/24 17:03 Blood Blood Culture - Preliminary NO GROWTH AFTER 24 HOURS OF INCUBATION. Resulted CT SCAN ABD PELVIS IMPRESSION: 1. Suspected small bowel obstruction with possible transition point in the right hemiabdomen 2. Cholelithiasis. Gallbladder is mildly distended. Correlate with clinical findings. If clinically indicated, ultrasound could be obtained to further characterize. 3. Cirrhotic liver morphology. Mild perihepatic ascites. 4. Partially visualized small right and trace left pleural effusions with overlying atelectasis and/or consolidation. 5. Chronic appearing compression fracture of the L4 vertebral body. 6. Additional findings as detailed above. Problems(with codes): (1) Coffee ground emesis (2) Lumbar vertebral fracture (3) SBO (small bowel obstruction) (4) Cirrhosis (5) Ascites (6) Dehydration Plan/Recommendation Assessment plan Patient does not appear to be having any further acute GI bleeding, H&H is stable Taper IV octreotide and IV Protonix drip Maintained on Protonix 40 mg IV q.12 hours Ice chips NG tube to low intermittent suction Gastrografin small-bowel series to rule out obstruction Further recommendations after the above Elective panendoscopy once medically stabilized Plan discussed with: Patient, Other (ER Nurse and Dr Yates) RAMYA LEVY MD Oct 06, 2024 21:34
[2024-10-07] MEDS: AMINO ACID INFUSION IN D5W 1,000 ML IV SCH (02:04)
[2024-10-07 03:20] VITALS: O2SAT 94
[2024-10-07 04:19] LABS: Basophils # (auto) 0 10 ^3/uL (0-0.2); Basophils % (auto) 0.5 % (0.0-2.0); Eosinophils # (auto) 0.1 10 ^3/uL (0-0.8); Hemoglobin 14.3 g/dL (13.5-17.5); Mean Corpuscular Hemoglobin 31.2 pg (28.0-32.0); Mean Corpuscular Hgb Conc. 33.2 g/dL (32.0-36.0); Monocytes % (auto) 9.6 % (0.0-12.0); Neutrophils # (auto) 7.2 10 ^3/uL (1.6-8.6); Neutrophils % (auto) 69.9 % (37.0-80.0); Nucleated Red Blood Cells % 0.1 %; Platelet Count (auto) 232 10^3/uL (140-450); Red Blood Cells 4.57 10^6/uL (4.5-5.90); Red Cell Distribution Width 14.1 % (11.8-14.3); White Blood Cell 10.3 10^3/uL (4.4-10.8)
[2024-10-07 04:25] LABS: Anion Gap 5 (5-15)
[2024-10-07 04:26] LABS: Calcium 9.3 mg/dL (8.7-10.4)
[2024-10-07 04:31] LABS: BUN/Creatinine Ratio 25.6 (10.0-20.0); Blood Urea Nitrogen 23 mg/dL (9-23); Carbon Dioxide 33 mmol/L (20-31); Chloride 113 mmol/L (98-107); Glucose 131 mg/dL (74-106); Potassium 3.5 mmol/L (3.5-5.1); Sodium 151 mmol/L (136-145)
--- NOTE | 2024-10-07 05:19 | ECG ---
[facility] Test Date: 2024-10-05 Test Time: 08:18:05 Pat Name: ELISA PARRA Department: ED Room: [address] [place] [address] Gender: M Rn Manager: SELVIN : 1955 Requested By: DEEP COX Order Number: [id number] Reading MD: Jonas Xiao Measurements Intervals [place] Rate: 155 P: 83 NC: 131 QRS: 219 QRSD: 95 T: -56 QT: 278 QTc: 447 Interpretive Statements Supraventricular tachycardia Low voltage, precordial leads RVH with secondary repolarization abnrm ST depression, probably rate related Electronically Signed On 10-07-2024 14:11:48 PST by Jonas Xiao Please click the below link to view image of tracing.
[2024-10-07 07:25] VITALS: PULSE 99; RESP 16; O2SAT 97
--- NOTE | 2024-10-07 11:30 | DVHPNRES ---
Progress Note Date Seen: Oct 07, 2024 Resident Creating Document: PARK SARMIENTO RESIDENT Medical Necessity Reason Pt with a Central, PICC or Fol: No Subjective Review of Systems pt seen and examined at bedside, alert and oriented X3, mentioning of abdominal distension currently has NG tube in place Objective vital signs Vital Sign Date Time Temp Pulse Resp B/P (MAP) Pulse Ox O2 Delivery O2 Flow Rate FiO2 10/07/24 08:00 82 13 123/69 (87) 98 10/07/24 07:25 Nasal Cannula* 3 32 10/07/24 07:25 98.3 98.3 Total Intake and Output 10/06/24 10/06/24 10/07/24 15:00 23:00 07:00 Intake Total 187.5 ml 775.0 ml 412.5 ml Output Total 2650 ml Balance -2462.5 ml 775.0 ml 412.5 ml medications Current Medications Medications Dose Ordered Sig/Jake Route Start Time Stop Time Status Last Admin Dose Admin Cefepime HCl 50 ml @ 12.5 mls/hr Q8H IV 10/06/24 04:00 10/07/24 04:19 12.5 MLS/HR Metronidazole 100 ml @ 100 mls/hr Q8H IV 10/06/24 00:00 10/07/24 08:18 100 MLS/HR Vancomycin HCl 0 ml @ 0 mls/hr UD IV 10/05/24 23:15 Pantoprazole Sodium 40 mg BID IV 10/06/24 10:00 10/07/24 10:00 40 MG Vancomycin HCl 250 ml @ 250 mls/hr Q12H IV 10/06/24 14:00 10/07/24 02:39 250 MLS/HR Ibuprofen 400 mg Q8HP PRN PO 10/06/24 19:00 Examination General Appearance: Cooperative. Well developed. Well nourished. NAD Head Exam: Normal inspection Neck Exam: Normal inspection. Non-tender. Normal alignment Pulmonary/Respiratory: Chest non-tender. Clear bilateral breath sounds, no crackles, no wheezing. Cardiovascular/Chest: Regular rate and rhythm. No murmurs. No JVD. Peripheral Pulses: 2+ Radial (R). 2+ Radial (L). 2+ Pedal (R). 2+ Pedal (L) Abdominal Exam: Decreased bowel sounds. Distended abdomen, no visible veins, some tenderness to palpation Ankle Exam: Negative ankle edema Lower extremities: Negative lower extremity edema Neuro/Mental Status: A&O x2. Coherent. Skin Exam: Normal inspection. Normal color. Warm. Dry laboratory and microbiology Laboratory Tests 10/07/24 03:55 Test 10/07/24 03:55 Range/Units Serum Glucose 131 H 74-106 mg/dL Microbiology Date/Time Source Procedure Growth Status 10/05/24 17:03 Blood Blood Culture - Preliminary NO GROWTH AFTER 24 HOURS OF INCUBATION. Resulted Labs and/or images reviewed: Labs reviewed by me, Image(s) reviewed by me Problem List/Assessment/Plan Problem List/Assessment/Plan Assessment/plan Cardiology #hyperlipidemia -will resume home Meds once Neurology # Altered level of consciousness likely due to metabolic encephalopathy due to ?sepsis/hepatic encephalopathy -ammonia levels -IV fluids, IV antibiotics Respiratory #Acute hypoxic respiratory failure likely due to sepsis -IV antibiotics -sputum culture GI # Upper GI bleed -IV fluids -monitor H and H -GI consult -Protonix drip, discontinued, switched to IV protonix -octreotide drip considering liver cirrhosis seen on CT, discontinued # Suspected small bowel obstruction with possible transition point in the right esdras-abdomen -seen on CT -NPO -Surgical consult -Small bowel follow with Gastrografin as recommended by the surgeon -IV clinimix started by surgeon # Cholelithiasis -seen on CT # Liver cirrhosis -seen on CT Musculoskeletal #Chronic appearing compression fracture of the L4 vertebral body. -pt not symptomatic. #History of arthritis Nephrology #hypernatremia -d5w@50cc/hr Psychiatry #history of schizophrenia Endocrine #hypothyroidism will resume home Meds once patient is started on diet Urology #Hematuria -UA Code status , Full code as of now, since patient is confused and no family contact Case discussion with Dr Millard Downgraded to Telemetry Plan discussed with: Patient, Other My Orders My Orders Orders - PARK SARMIENTO RESIDENT Procedure Category Date Status Time Transfer Orders XFER 10/07/24 Transmitted 09:26 Date of Service: Oct 07, 2024 Billing Provider: REBEKA MILLARD MD Common Visit Codes: [id number] INP/OBS CARE(HIGH) PARK SARMIENTO RESIDENT Oct 07, 2024 11:30 REBEKA MILLARD MD Oct 07, 2024 22:44
[2024-10-07 14:25] VITALS: BP 110/71; PULSE 88; RESP 19; TEMP 96.6; O2SAT 90
--- NOTE | 2024-10-07 14:28 | DVHPN2 ---
Progress Note - Dictate Date Seen: Oct 07, 2024 Medical Necessity Reason Pt with a Central, PICC or Fol: No Subjective No new complaints Patient requested to have his NG tube removed today although it was in good position Patient had output recorded of 2650 ml vi NGT Patient had hematuria today which has since resolved No active GI bleeding reported vital signs Vital Sign Date Time Temp Pulse Resp B/P (MAP) Pulse Ox O2 Delivery O2 Flow Rate FiO2 10/07/24 13:00 87 18 119/77 (91) 97 10/07/24 07:25 Nasal Cannula* 3 32 10/07/24 07:25 98.3 98.3 Total Intake and Output 10/06/24 10/06/24 10/07/24 15:00 23:00 07:00 Intake Total 187.5 ml 775.0 ml 412.5 ml Output Total 2650 ml Balance -2462.5 ml 775.0 ml 412.5 ml medications Current Medications Medications Dose Ordered Sig/Jake Route Start Time Stop Time Status Last Admin Dose Admin Cefepime HCl 50 ml @ 12.5 mls/hr Q8H IV 10/06/24 04:00 10/07/24 12:24 12.5 MLS/HR Metronidazole 100 ml @ 100 mls/hr Q8H IV 10/06/24 00:00 10/07/24 08:18 100 MLS/HR Vancomycin HCl 0 ml @ 0 mls/hr UD IV 10/05/24 23:15 Pantoprazole Sodium 40 mg BID IV 10/06/24 10:00 10/07/24 10:00 40 MG Vancomycin HCl 250 ml @ 250 mls/hr Q12H IV 10/06/24 14:00 10/07/24 02:39 250 MLS/HR Ibuprofen 400 mg Q8HP PRN PO 10/06/24 19:00 objective General Appearance: Alert, Oriented x 3 Respiratory: Clear to auscultation, Normal air movement Cardiovascular: Regular rate, Normal S1, Normal S2 Abdominal: Abdominal distention, mild diffuse tenderness, hypoactive bowel sounds Extremities: No cyanosis, No edema, Normal pulses, No tenderness/swelling laboratory and microbiology Laboratory Tests 10/07/24 03:55 Test 10/07/24 03:55 Range/Units Serum Glucose 131 H 74-106 mg/dL CXR IMPRESSION: 1. Enteric tube below the left diaphragm in the stomach 2. Poor inspiratory effort with bibasilar areas of atelectasis SBFT X RAY IMPRESSION: 1. Enteric tube below the left diaphragm in the stomach 2. Poor inspiratory effort with bibasilar areas of atelectasis Problems(with codes): (1) Coffee ground emesis (2) Lumbar vertebral fracture (3) SBO (small bowel obstruction) (4) Cirrhosis (5) Ascites (6) Dehydration (7) Hematuria Prognosis Plan Leukocytosis improved, H&H fairly stable Continue IV Protonix 40 mg q.12 hours Octreotide drip was discontinued Repeat abdominal x-ray to re-evaluate Gastrografin contrast, patient has not had a bowel movement Possible repeat CT or small-bowel series tomorrow pending clinical progress I will be standing by for possible EGD if medically stabilized IV antibiotics and IV Clinimix at 42 mL/hour Plan discussed with: Other (ER Nurse) RAMYA LEVY MD Oct 07, 2024 14:28
[2024-10-07] MEDS ORDERED: CLINIMIX PER PHARMACY 0 ML IV SCH (14:30)
[2024-10-07] MEDS ORDERED: DEXTROSE (50%) 50ML SYRG IV SCH (16:30)
[2024-10-07 17:00] VITALS: BP 100/58; PULSE 91; RESP 18; TEMP 97.3; O2SAT 92
--- NOTE | 2024-10-07 17:24 | DVH ---
CLINICAL HISTORY: 69 years old, Male; small bowel obstrucition. TECHNIQUE: AP abdominal radiographs were obtained. COMPARISON: Small-bowel series dated 10/06/2024. FINDINGS: Examination is limited, with portions of the abdomen not included in the [id number] of the exam. There is gaseous distention of the stomach, small bowel, and gas also visualized in the col on. There appears to be some residual contrast from the previous small bowel series in the small charlie l and stomach. No definite visualized contrast in the colon on these images given the limitations of the exam. Previously seen enteric tube is not visualized on these images. IMPRESSION: Dilated small bowel loops and gaseous distention of the stomach. There is residual contrast in the st omach and small bowel from the recent small bowel series. No definite contrast visualized in the colo n, although limited examination as described above.
[2024-10-07] MEDS: D5W 5% 1,000 ML IV SCH (17:30)
[2024-10-07] MEDS: InsuLIN REG 1unit/0.01ml Soln (100units/ml) SC SCH (17:58)
[2024-10-07] MEDS: ACCU-CHEK COMFORT CURVE STRIP VI SCH (17:59)
[2024-10-07 19:45] VITALS: PULSE 82; RESP 18; O2SAT 88
[2024-10-07 21:00] VITALS: BP 102/57; PULSE 94; RESP 19; TEMP 98.6; O2SAT 86
[2024-10-08] VITALS (9 sets, daily range): BP systolic 95–133; BP diastolic 55–71; PULSE 64–111; RESP 15–21; TEMP 97.4–98.9; O2SAT 88–94
[2024-10-08 07:39] LABS: Basophils # (auto) 0 10 ^3/uL (0-0.2); Basophils % (auto) 0.4 % (0.0-2.0); Eosinophils # (auto) 0.2 10 ^3/uL (0-0.8); Eosinophils % (auto) 2.6 % (0.0-7.0); Hematocrit 41.7 % (41.0-53.0); Hemoglobin 13.7 g/dL (13.5-17.5); Lymphocytes # (auto) 2.2 10 ^3/uL (0.4-5.4); Lymphocytes % (auto) 27.4 % (10.0-50.0); Mean Corpuscular Hemoglobin 30.8 pg (28.0-32.0); Mean Corpuscular Hgb Conc. 32.9 g/dL (32.0-36.0); Mean Corpuscular Volume 93.5 fL (80.0-100.0); Monocytes # (auto) 0.7 10 ^3/uL (0-1.3); Neutrophils # (auto) 4.8 10 ^3/uL (1.6-8.6); Neutrophils % (auto) 60.6 % (37.0-80.0); Nucleated Red Blood Cells % 0.1 %; Platelet Count (auto) 229 10^3/uL (140-450); Red Blood Cells 4.46 10^6/uL (4.5-5.90)
[2024-10-08 08:06] LABS: Alanine Aminotransferase 19 U/L (7-40); Alkaline Phosphatase 105 U/L (46-116); Anion Gap 8 (5-15); BUN/Creatinine Ratio 21.6 (10.0-20.0); Blood Urea Nitrogen 21 mg/dL (9-23); Calcium 9.2 mg/dL (8.7-10.4); Glucose 98 mg/dL (74-106); Magnesium 2.3 mg/dL (1.6-2.6); Triglycerides 75 mg/dL (< 150)
[2024-10-08 08:07] LABS: Albumin 3.3 g/dL (3.2-4.8); Aspartate Aminotransferase 19 U/L (13-40); Carbon Dioxide 31 mmol/L (20-31); Chloride 109 mmol/L (98-107); Potassium 3.4 mmol/L (3.5-5.1); Sodium 148 mmol/L (136-145)
[2024-10-08 08:08] LABS: Bilirubin, Total 1.6 mg/dL (0.2-1.0); Total Protein 6.6 g/dL (5.7-8.2)
[2024-10-08] MEDS ORDERED: MIDAZOLAM HCL 2MG/2ML 2ml VIAL (1mg/ml) ONE (10:04)
[2024-10-08] MEDS ORDERED: ONDANSETRON HCL 4 MG/2 ML VIAL ONE (10:06)
[2024-10-08] MEDS ORDERED: LIDOCAINE 1% INJ PF 5ML AMP ONE (10:06)
[2024-10-08] MEDS ORDERED: PROPOFOL 10 MG/ML 20 ML IV ONE (10:06)
--- NOTE | 2024-10-08 10:40 | DVHOP2 ---
Operative Report DATE OF OPERATION: 10/08/24 PROCEDURE: Upper Endoscopy with biopsy. PREOPERATIVE INDICATION: The patient is a 69 -year-old male undergoing endoscopy for coffee-ground emesis abdominal pain and distention POSTOPERATIVE DIAGNOSES: 1. 2 cm sliding-type hiatal hernia with grade B to C erosive esophagitis and multiple distal esophageal ulcers, there were no varices 2. Moderate amount of retained dark bile and old coffee-ground in the stomach, about 1250 mL was aspirated and bile reflux was noted into the esophagus 3. Mild gastroduodenitis with mild inflammatory changes of the pyloric channel but there was no gastric outlet obstruction 4. Endoscope was advanced to 2nd part of the duodenum and bile was also noted refluxing back from the small intestine which was aspirated PROCEDURE PERFORMED BY: Ramya Garcia GI NURSE: Shyann SCOPE: Olympus videoendoscope. ASA CLASS: 3 PREOPERATIVE MEDICATIONS: Mac kristina, Dr. Godinez PROCEDURE IN DETAIL: After obtaining an informed consent, the patient was placed on left lateral decubitus position. The patient was then sedated with the above medications. A bite block was placed between his teeth. The endoscope was then passed through the oropharynx, into the esophagus, and through the stomach and pylorus up to the second and third part of the duodenum. The endoscope was then withdrawn. The 2nd and 3rd part of the duodenal and the duodenal bulb were normal. Duode nal biopsies were obtained. Moderate amount of bile was seen refluxing back from the small intestine. There was mild pyloric channel inflammation. There was no gastric outlet obstruction. Patient had a dilated stomach with a large amount of retained dark bile and coffee grounds and stomach About 1250 mL was aspirated. Otherwise on retroflexion no mass or ulceration was seen in the stomach or cardia. Gastric biopsies were obtained The endoscope was then withdrawn into the distal esophagus where the patient had a 2-3 cm sliding-type hiatal hernia with grade B to C erosive esophagitis There were acute distal esophageal ulcers and moderate bile reflux was noted into the esophagus. GE junction biopsies were obtained. The remaining distal and proximal esophagus and oropharynx were unremarkable and there were noesophageal varices. The patient tolerated the procedure well without difficulty. COMPLICATIONS : None SPECIMENS: Duodenal biopsies Gastric biopsies GE junction biopsies DISPOSITION: Transfer back to the floor Stable PLAN: 1. Await for biopsy result 2. Will place pt on Protonix 40 mg bid IV 3. Recommend patient have an NG tube reinserted to low intermittent suction as patient has high suspicion for having ongoing bowel obstruction 4. Keep head end elevated to 30 at all times 5. Get surgical consult for suspected small-bowel obstruction 6. Start Clinimix 1 L per 24 hours and keep patient NPO except for ice chips RAMYA GARCIA MD Oct 08, 2024 10:40
--- NOTE | 2024-10-08 10:53 | DVHPNRES ---
Progress Note Date Seen: Oct 08, 2024 Resident Creating Document: PARK SARMIENTO RESIDENT Medical Necessity Reason Pt with a Central, PICC or Fol: No Subjective Review of Systems pt seen and examined at bedside, mentions no new complaints, scheduled for EGD today Objective vital signs Vital Sign Date Time Temp Pulse Resp B/P (MAP) Pulse Ox O2 Delivery O2 Flow Rate FiO2 10/08/24 09:00 98.5 86 16 116/59 (78) 92 98.5 10/07/24 19:45 Room Air* 4 N/A Nasal Cannula* Total Intake and Output 10/07/24 10/07/24 10/08/24 15:00 23:00 07:00 Intake Total 137.5 ml 0 ml Balance 137.5 ml 0 ml medications Current Medications Medications Dose Ordered Sig/Jake Route Start Time Stop Time Status Last Admin Dose Admin Cefepime HCl 50 ml @ 12.5 mls/hr Q8H IV 10/06/24 04:00 10/07/24 19:56 12.5 MLS/HR Metronidazole 100 ml @ 100 mls/hr Q8H IV 10/06/24 00:00 10/08/24 09:06 100 MLS/HR Vancomycin HCl 0 ml @ 0 mls/hr UD IV 10/05/24 23:15 Pantoprazole Sodium 40 mg BID IV 10/06/24 10:00 10/08/24 09:06 40 MG Amino Acids 0 ml @ 0 mls/hr PER PHARMACY IV 10/07/24 14:30 Diagnostic Test (Pha) 1 strip Q6HR 10/07/24 18:00 Insulin Human Regular FOLLOW SLIDING SCALE Q6HR SC 10/07/24 18:00 Dextrose 50 ml UD IV 10/07/24 16:30 Amino Acids 1,000 ml @ 41 mls/hr DAILY@2200 IV 10/07/24 22:00 10/07/24 02:04 41 MLS/HR Dextrose 1,000 ml @ 50 mls/hr Q20H IV 10/07/24 17:30 Vancomycin HCl 250 ml @ 250 mls/hr Q24H IV 10/08/24 09:00 Examination General Appearance: Cooperative. Well developed. Well nourished. NAD Head Exam: Normal inspection Neck Exam: Normal inspection. Non-tender. Normal alignment Pulmonary/Respiratory: Chest non-tender. Clear bilateral breath sounds, no crackles, no wheezing. Cardiovascular/Chest: Regular rate and rhythm. No murmurs. No JVD. Peripheral Pulses: 2+ Radial (R). 2+ Radial (L). 2+ Pedal (R). 2+ Pedal (L) Abdominal Exam: Decreased bowel sounds. Distended abdomen, no visible veins, some tenderness to palpation Ankle Exam: Negative ankle edema Lower extremities: Negative lower extremity edema Neuro/Mental Status: A&O x2. Coherent. Skin Exam: Normal inspection. Normal color. Warm. Dry laboratory and microbiology Laboratory Tests 10/08/24 06:52 Test 10/08/24 06:52 Range/Units Serum Glucose 98 74-106 mg/dL Microbiology Date/Time Source Procedure Growth Status 10/06/24 19:32 Voided Urine Urine Culture - Preliminary Resulted 10/05/24 17:03 Blood Blood Culture - Preliminary NO GROWTH AFTER 48 HOURS OF INCUBATION. Resulted Labs and/or images reviewed: Labs reviewed by me, Image(s) reviewed by me Problem List/Assessment/Plan Problem List/Assessment/Plan Assessment/plan Cardiology #hyperlipidemia -will resume home Meds once Neurology # Altered level of consciousness likely due to metabolic encephalopathy due to ?sepsis/hepatic encephalopathy -ammonia levels -IV fluids, IV antibiotics Respiratory #Acute hypoxic respiratory failure likely due to sepsis -IV antibiotics -sputum culture GI # Upper GI bleed -IV fluids -monitor H and H -GI consult -Protonix drip, discontinued, switched to IV protonix -octreotide drip considering liver cirrhosis seen on CT, discontinued #erosive esophagitis and multiple distal esophageal ulcers -seen on EGD -IV protonix BID # Suspected small bowel obstruction with possible transition point in the right esdras-abdomen -seen on CT -NPO -Surgical consult -repeat Small bowel follow with Gastrografin as recommended by the surgeon NG tube -IV clinimix started by surgeon # Cholelithiasis -seen on CT # Liver cirrhosis -seen on CT Musculoskeletal #Chronic appearing compression fracture of the L4 vertebral body. -pt not symptomatic. #History of arthritis Nephrology #hypernatremia -d5w@50cc/hr Psychiatry #history of schizophrenia Endocrine #hypothyroidism will resume home Meds once patient is started on diet Urology #Hematuria -UA Code status , Full code as of now, since patient is confused and no family contact Case discussion with Dr Millard Downgraded to Telemetry Plan discussed with: Patient, Other My Orders My Orders Orders - PARK SARMIENTO RESIDENT Procedure Category Date Status Time Kub Abdomen Single XY 10/07/24 Resulted View 14:29 Urinalysis LAB 10/07/24 Logged 16:27 D5w 5% (Dextrose 5%) PHA 10/07/24 In Process 17:30 Vancomycin 1gm/250ml PHA 10/08/24 In Process Kit 09:00 Vancomycin,Trough LAB 10/11/24 Verified 08:00 Vancomycin Per ERLINDA 10/11/24 In Process Pharmacy Protoc 09:00 Basic Metabolic Panel LAB 10/09/24 Verified 04:00 Potassium Chl PHA 10/08/24 Logged 20meq/100ml 11:00 Date of Service: Oct 08, 2024 Billing Provider: REBEKA MILLARD MD Common Visit Codes: [id number] INP/OBS CARE(HIGH) PARK SARMIENTO RESIDENT Oct 08, 2024 10:53 REBEKA MILLARD MD Oct 09, 2024 11:10
[2024-10-08] MEDS ORDERED: POTASSIUM CHL 20MEQ/100ML 100 ML IV ONE (11:00)
--- NOTE | 2024-10-08 14:04 | DVHINCON2 ---
Date of service: Oct 08, 2024 Family History: Patient reports no known family medical history. Allergies: Coded Allergies: NO KNOWN ALLERGIES (Unverified , 10/05/24) Home Meds Reported Medications Temazepam (Restoril) 15 Mg Cp, 1 CAP PO QPM, #30 CAP 1 Refill 10/06/24 Acetaminophen (Acetaminophen) 160 Mg/5 Ml Danielle, 325 MG PO Q6HPRN, ML 10/06/24 Ascorbic Acid (VITAMIN C TABLET) 500 Mg Tb, 1 TAB PO BID, #60 TAB 10/06/24 Quetiapine Fumerate (Seroquel) 50 Mg Tab, 1 TAB PO BID, #30 TAB 2 Refills 10/06/24 Multiple Vitamin (Multivitamins) Tab, PO DAILY, #90 TAB 3 Refills 10/06/24 Levothyroxine Sodium (Levothyroxine Sodium) 25 Mcg Tab, 1 TAB PO DAILY, #30 TAB 5 Refills 10/06/24 Docusate Sodium (Colace) 100 Mg Cap, 100 MG PO, CAP 10/06/24 Atorvastatin Calcium (Lipitor) 20 Mg Tab, 1 TAB PO DAILY, #90 TAB 1 Refill 10/06/24 Current Medications Current Medications Medications (Trade) Dose Ordered Sig/Jake Route PRN Reason Start Time Stop Time Status Last Admin Amino Acids 0 ml @ 0 mls/hr PER PHARMACY IV 10/07/24 14:30 Diagnostic Test (Pha) (Accu-Chek Comfort Curve T) 1 strip Q6HR 10/07/24 18:00 Insulin Human Regular (InsuLIN R) FOLLOW SLIDING SCALE Q6HR SC 10/07/24 18:00 Dextrose 50 ml UD IV 10/07/24 16:30 Amino Acids 1,000 ml @ 41 mls/hr DAILY@2200 IV 10/07/24 22:00 10/07/24 02:04 Dextrose 1,000 ml @ 50 mls/hr Q20H IV 10/07/24 17:30 Vancomycin HCl 250 ml @ 250 mls/hr Q24H IV 10/08/24 09:00 Vital Signs Vital Signs Date Time Temp Pulse Resp B/P (MAP) Pulse Ox O2 Delivery O2 Flow Rate FiO2 10/08/24 13:00 97.7 64 18 112/71 (85) 91 97.7 10/08/24 10:34 Mask 6.0 93 Labs/Diagnostic Data Labs Test 10/08/24 12:16 10/08/24 06:52 10/07/24 03:55 10/06/24 19:32 Range/Units POC Glucose 84 70-106 mg/dl White Blood Count 8.0 4.4-10.8 10^3/uL Red Blood Count 4.46 L 4.5-5.90 10^6/uL Hemoglobin 13.7 13.5-17.5 g/dL Hematocrit 41.7 41.0-53.0 % Mean Corpuscular Volume 93.5 80.0-100.0 fL Mean Corpuscular Hemoglobin 30.8 28.0-32.0 pg Mean Corpuscular Hemoglobin Concent 32.9 32.0-36.0 g/dL Red Cell Distribution Width 14.0 11.8-14.3 % Platelet Count 229 140-450 10^3/uL Mean Platelet Volume 6.6 L 6.9-10.8 fL Neutrophils (%) (Auto) 60.6 37.0-80.0 % Lymphocytes (%) (Auto) 27.4 10.0-50.0 % Monocytes (%) (Auto) 9.0 0.0-12.0 % Eosinophils (%) (Auto) 2.6 0.0-7.0 % Basophils (%) (Auto) 0.4 0.0-2.0 % Neutrophils # (Auto) 4.8 1.6-8.6 10 ^3/uL Lymphocytes # (Auto) 2.2 0.4-5.4 10 ^3/uL Monocytes # (Auto) 0.7 0-1.3 10 ^3/uL Eosinophils # (Auto) 0.2 0-0.8 10 ^3/uL Basophils # (Auto) 0 0-0.2 10 ^3/uL Nucleated Red Blood Cells 0.1 % Sodium Level 148 H 136-145 mmol/L Potassium Level 3.4 L 3.5-5.1 mmol/L Chloride Level 109 H 98-107 mmol/L Carbon Dioxide Level 31 20-31 mmol/L Anion Gap 8 5-15 Blood Urea Nitrogen 21 9-23 mg/dL Creatinine 0.97 0.700-1.30 mg/dL Glomerular Filtration Rate Calc 86 >90 mL/min BUN/Creatinine Ratio 21.6 H 10.0-20.0 Serum Glucose 98 74-106 mg/dL Calcium Level 9.2 8.7-10.4 mg/dL Phosphorus Level 2.0 L 2.4-5.1 mg/dL Magnesium Level 2.3 1.6-2.6 mg/dL Total Bilirubin 1.6 H 0.2-1.0 mg/dL Aspartate Amino Transferase (AST) 19 13-40 U/L Alanine Aminotransferase (ALT) 19 7-40 U/L Alkaline Phosphatase 105 46-116 U/L Total Protein 6.6 5.7-8.2 g/dL Albumin 3.3 3.2-4.8 g/dL Triglycerides Level 75 < 150 mg/dL Random Vancomycin Level 7.5 5-10 ug/mL Vancomycin Level Trough 41.9 *H 5-10 ug/mL Urine Color Yellow Yellow Urine Clarity Clear Clear Urine pH 6.0 5.0-9.0 Urine Specific Mcneal 1.024 1.001-1.035 Urine Protein Trace H Negative Urine Ketones Trace Negative Urine Blood Negative Negative /uL Urine Nitrite Negative Negative Urine Bilirubin Negative Negative Urine Urobilinogen Normal Negative mg/dL Urine Leukocyte Esterase Negative Negative /uL Urine RBC <1 0 - 3 /hpf Urine WBC 5 0 - 3 /hpf Urine Squamous Epithelial Cells None seen <5 /hpf Urine Bacteria Few H None Seen /hpf Urine Mucus Few None Seen Urine Glucose Normal Normal mg/dL Urine Opiates Screen Neg NEGATIVE Urine Fentanyl Screen Neg NEGATIVE Urine Barbiturates Screen Neg NEGATIVE Urine Phencyclidine Screen Neg NEGATIVE Urine Amphetamines Screen Neg NEGATIVE Urine Benzodiazepines Screen Neg NEGATIVE Urine Cocaine Screen Neg NEGATIVE Urine Cannabinoids Screen Neg NEGATIVE Test 10/06/24 18:12 10/05/24 20:10 10/05/24 10:06 10/05/24 08:58 Range/Units Lactic Acid Level 1.5 0.4-2.0 mmol/L Plasma/Serum Blood Alcohol < 3.0 <10 mg/dL Influenza Type A Antigen Negative Negative Influenza Type B Antigen Negative Negative SARS-CoV-2 Antigen (Rapid) Negative NEGATIVE Troponin I High Sensitivity 8 </=54 ng/L Prothrombin Time 12.2 H 9.3-11.8 sec Prothrombin Time INR 1.16 H 0.9-1.15 Activated Partial Thromboplast Time 28.0 24.5-34.5 SEC Ammonia 37 H 11-32 umol/L Lactate Dehydrogenase 183 120-246 U/L Lipase 25 12-53 U/L Microbiology Date/Time Source Procedure Growth Status 10/06/24 19:32 Voided Urine Urine Culture - Preliminary Resulted 10/05/24 17:03 Blood Blood Culture - Preliminary NO GROWTH AFTER 48 HOURS OF INCUBATION. Resulted Assessment [id number] R/O COLONIC ILEUS PROXIMAL RECTAL FECAL IMNPACTION CONSTIPATION FECAL DISIMPACTION AT BEDSIDE ATTEMPTED BUT NOT ABLE TO NOT AN AC ABDOMEN MANAGE CONSERVATIVELY CONSIDER GASTROGRAFIN STUDY SMALL BOWEL FOLLOW THROUGH INDICATED Plan discussed with: Other VIOLETA LEVY MD Oct 08, 2024 14:04
--- NOTE | 2024-10-08 14:53 | DVHINCON2 ---
DATE OF CONSULTATION: 10/08/2024 HISTORY OF PRESENT ILLNESS: This patient is 69 years old, noncooperative, unable to give adequate history, but most of the information obtained from the chart and the nursing staff. He recently had an EGD. He has history of schizophrenia, hypothyroidism, arthritis and had coffee-ground emesis, for which he had the EGD. No active bleed was found and I was asked to see him with regards to bowel obstruction. No nausea, vomiting. He cannot give me history on his bowel activity. PAST MEDICAL HISTORY: Schizophrenia, hypothyroidism, arthritis. PAST SURGICAL HISTORY: Negative. PHYSICAL EXAMINATION: VITAL SIGNS: Afebrile, stable signs. HEENT: With no evidence of pallor, cyanosis, or jaundice. NECK: Supple, nontender with no thyromegaly, lymphadenopathy. CHEST AND LUNGS: Clear. HEART: Within normal limits. ABDOMEN: Soft, distended, nonacute. GENITOURINARY: Rectal examination was done. He allowed me to do that at the bedside. Fecal impaction was noted, but it was too far up for me to digitally disimpact it, but I did feel air coming out. IMPRESSION: My clinical impression is rule out colonic ileus, possible fecal impaction that is expected to resolve and he needs to manage conservatively at this time and we will consider small bowel series, follow through to determine the need for surgery. MD LIBERTY Kuo/POLI TID: [id number] RECEIPT: [id number] cc: REBEKA MILLARD M.D.
[2024-10-08] MEDS: POTASSIUM PHOSPHATE 26.4 MEQ in SODIUM CHL 0.9% 100 ML IV ONE (15:41)
[2024-10-08] MEDS: VANCOMYCIN 1GM/250ML KIT 250 ML IV SCH (15:50)
[2024-10-08] MEDS: MORPHINE SULFATE INJ 2 MG/ml SYRG IV PRN (16:01)
[2024-10-09] VITALS (8 sets, daily range): BP systolic 103–125; BP diastolic 44–65; PULSE 60–93; RESP 18–20; TEMP 98.2–99.1; O2SAT 91–97
[2024-10-09 08:07] LABS: Alanine Aminotransferase 15 U/L (7-40); Alkaline Phosphatase 92 U/L (46-116); Anion Gap 8 (5-15); Carbon Dioxide 28 mmol/L (20-31); Chloride 106 mmol/L (98-107); Glucose 74 mg/dL (74-106); Sodium 142 mmol/L (136-145)
[2024-10-09 08:08] LABS: BUN/Creatinine Ratio 15.6 (10.0-20.0); Blood Urea Nitrogen 14 mg/dL (9-23)
[2024-10-09 08:09] LABS: Aspartate Aminotransferase 18 U/L (13-40); Basophils # (auto) 0 10 ^3/uL (0-0.2); Basophils % (auto) 0.3 % (0.0-2.0); Eosinophils # (auto) 0.2 10 ^3/uL (0-0.8); Eosinophils % (auto) 2.5 % (0.0-7.0); Hematocrit 37.2 % (41.0-53.0); Hemoglobin 12.5 g/dL (13.5-17.5); Lymphocytes # (auto) 2.1 10 ^3/uL (0.4-5.4); Lymphocytes % (auto) 29.5 % (10.0-50.0); Mean Corpuscular Hemoglobin 31.1 pg (28.0-32.0); Mean Corpuscular Hgb Conc. 33.7 g/dL (32.0-36.0); Mean Corpuscular Volume 92.3 fL (80.0-100.0); Monocytes # (auto) 0.7 10 ^3/uL (0-1.3); Monocytes % (auto) 9.3 % (0.0-12.0); Neutrophils # (auto) 4.2 10 ^3/uL (1.6-8.6); Neutrophils % (auto) 58.4 % (37.0-80.0); Nucleated Red Blood Cells % 0.1 %; Platelet Count (auto) 214 10^3/uL (140-450); Red Blood Cells 4.03 10^6/uL (4.5-5.90); White Blood Cell 7.3 10^3/uL (4.4-10.8)
[2024-10-09 08:10] LABS: Albumin 2.9 g/dL (3.2-4.8); Calcium 8.4 mg/dL (8.7-10.4); Phosphorus 2.2 mg/dL (2.4-5.1); Potassium 3.4 mmol/L (3.5-5.1); Total Protein 5.9 g/dL (5.7-8.2)
[2024-10-09 08:11] LABS: Bilirubin, Total 1.2 mg/dL (0.2-1.0)
[2024-10-09] MEDS ORDERED: POTASSIUM CHL 20MEQ/100ML 100 ML IV ONE (09:45)
--- NOTE | 2024-10-09 12:45 | DVHPN2 ---
Progress Note Date Seen: Oct 09, 2024 Medical Necessity Reason Pt with a Central, PICC or Fol: No Objective vital signs Vital Sign Date Time Temp Pulse Resp B/P (MAP) Pulse Ox O2 Delivery O2 Flow Rate FiO2 10/09/24 10:00 92 18 112/60 10/09/24 09:00 98.3 93 98.3 10/09/24 08:00 Nasal Cannula* 2 28 Total Intake and Output 10/08/24 10/08/24 10/09/24 15:00 23:00 07:00 Intake Total 200 ml 860 ml 150 ml Output Total 200 ml Balance 200 ml 860 ml -50 ml medications Current Medications Medications Dose Ordered Sig/Jake Route Start Time Stop Time Status Last Admin Dose Admin Cefepime HCl 50 ml @ 12.5 mls/hr Q8H IV 10/06/24 04:00 10/09/24 11:28 12.5 MLS/HR Metronidazole 100 ml @ 100 mls/hr Q8H IV 10/06/24 00:00 10/09/24 09:36 100 MLS/HR Vancomycin HCl 0 ml @ 0 mls/hr UD IV 10/05/24 23:15 Pantoprazole Sodium 40 mg BID IV 10/06/24 10:00 10/09/24 09:36 40 MG Amino Acids 0 ml @ 0 mls/hr PER PHARMACY IV 10/07/24 14:30 Diagnostic Test (Pha) 1 strip Q6HR 10/07/24 18:00 10/09/24 11:28 1 STRIP Insulin Human Regular FOLLOW SLIDING SCALE Q6HR SC 10/07/24 18:00 Dextrose 50 ml UD IV 10/07/24 16:30 Amino Acids 1,000 ml @ 41 mls/hr DAILY@2200 IV 10/07/24 22:00 10/08/24 21:11 41 MLS/HR Vancomycin HCl 250 ml @ 250 mls/hr Q24H IV 10/08/24 09:00 10/09/24 09:37 250 MLS/HR Morphine Sulfate 0.5 mg Q6HP PRN IV 10/08/24 15:00 10/09/24 10:00 0.5 MG Throat Lozenges 1 consuelo Q4HP PRN MT 10/09/24 11:15 UNV laboratory and microbiology Laboratory Tests 10/09/24 06:38 Test 10/09/24 06:38 Range/Units Serum Glucose 74 74-106 mg/dL Microbiology Date/Time Source Procedure Growth Status 10/06/24 19:32 Voided Urine Urine Culture - Final Complete 10/05/24 17:03 Blood Blood Culture - Preliminary NO GROWTH AFTER 72 HOURS OF INCUBATION. Resulted Problem List/Assessment/Plan Problem List/Assessment/Plan AFEBRILE VSS ABD SOFT LESS DISTENDED NO BM FLATUS + AWAIT GASTROGRAFIN STUDY Plan discussed with: Patient Dietary Evaluation Review Comments: 1. 10/07 Gastric dreanage total 2650 ml, No EN untill Gastric dranage is down to 500ml or less 2. When EN is feasible, consider Jevity 50ml/hr (67g pr 1440kcal), TF plus clinimix will proivde 109.5 g Pro and 1950 kcal to pt. 3. TPN per pharmacy in addition to clinimix i fPO or EN are not the options. Expected Outcomes/Goals: maintain weight, improved GI function, healed wounds if any. VIOLETA LEVY MD Oct 09, 2024 12:45
[2024-10-09 13:27] LABS: Urine Bacteria None Seen /hpf (None Seen)
[2024-10-09 13:37] LABS: Urine Blood 1+ /uL (Negative); Urine Clarity Clear (Clear); Urine Color Yellow (Yellow); Urine Protein, UAD TRACE (Negative); Urine Squamous Epithelial Cell None Seen /hpf (<5); Urine Urobilinogen Normal (Negative); Urine WBC 2 /hpf (0 - 3)
[2024-10-09] MEDS: GASTROGRAFIN 120 ML SOL ONE (13:55)
--- NOTE | 2024-10-09 13:57 | DVH ---
Procedure: XY SMALL BOWEL SERIES-W GASTROGRA Reason for study/Clinical History: sbo Comparison Study: None available at time of dictation. Technique: Single contrast small bowel series performed. FINDINGS/IMPRESSION: Initial manager hvac view of the abdomen and pelvis demonstrates nonspecific, nonobstructive bowel-gas patte rn and enteric contrast within the colon. Nasogastric tube in satisfactory position overlying the sto mach.
--- NOTE | 2024-10-09 15:43 | DVHPNRES ---
Progress Note Date Seen: Oct 09, 2024 Resident Creating Document: PARK SARMIENTO RESIDENT Medical Necessity Reason Pt with a Central, PICC or Fol: No Subjective Review of Systems pt seen and examined at bedside, mentions no new complaints. Alert and oriented X 3 when asked about passing gas/not, pt mentions " I Dont know " Objective vital signs Vital Sign Date Time Temp Pulse Resp B/P (MAP) Pulse Ox O2 Delivery O2 Flow Rate FiO2 10/09/24 13:00 98.2 60 20 109/63 (78) 92 98.2 10/09/24 08:00 Nasal Cannula* 2 28 Total Intake and Output 10/08/24 10/08/24 10/09/24 15:00 23:00 07:00 Intake Total 200 ml 860 ml 150 ml Output Total 200 ml Balance 200 ml 860 ml -50 ml medications Current Medications Medications Dose Ordered Sig/Jake Route Start Time Stop Time Status Last Admin Dose Admin Cefepime HCl 50 ml @ 12.5 mls/hr Q8H IV 10/06/24 04:00 10/09/24 11:28 12.5 MLS/HR Metronidazole 100 ml @ 100 mls/hr Q8H IV 10/06/24 00:00 10/09/24 09:36 100 MLS/HR Vancomycin HCl 0 ml @ 0 mls/hr UD IV 10/05/24 23:15 Pantoprazole Sodium 40 mg BID IV 10/06/24 10:00 10/09/24 09:36 40 MG Amino Acids 0 ml @ 0 mls/hr PER PHARMACY IV 10/07/24 14:30 Diagnostic Test (Pha) 1 strip Q6HR 10/07/24 18:00 10/09/24 11:28 1 STRIP Insulin Human Regular FOLLOW SLIDING SCALE Q6HR SC 10/07/24 18:00 Dextrose 50 ml UD IV 10/07/24 16:30 Amino Acids 1,000 ml @ 41 mls/hr DAILY@2200 IV 10/07/24 22:00 10/08/24 21:11 41 MLS/HR Vancomycin HCl 250 ml @ 250 mls/hr Q24H IV 10/08/24 09:00 10/09/24 09:37 250 MLS/HR Morphine Sulfate 0.5 mg Q6HP PRN IV 10/08/24 15:00 10/09/24 10:00 0.5 MG Throat Lozenges 1 consuelo Q4HP PRN MT 10/09/24 11:15 Examination General Appearance: Cooperative. Well developed. Well nourished. NAD Head Exam: Normal inspection Neck Exam: Normal inspection. Non-tender. Normal alignment Pulmonary/Respiratory: Chest non-tender. Clear bilateral breath sounds, no crackles, no wheezing. Cardiovascular/Chest: Regular rate and rhythm. No murmurs. No JVD. Peripheral Pulses: 2+ Radial (R). 2+ Radial (L). 2+ Pedal (R). 2+ Pedal (L) Abdominal Exam: softer abd compared to yesterday Ankle Exam: Negative ankle edema Lower extremities: Negative lower extremity edema Neuro/Mental Status: A&O x2. Coherent. Skin Exam: Normal inspection. Normal color. Warm. Dry laboratory and microbiology Laboratory Tests 10/09/24 06:38 Test 10/09/24 06:38 Range/Units Serum Glucose 74 74-106 mg/dL Microbiology Date/Time Source Procedure Growth Status 10/09/24 04:29 Nose MRSA Screen - Final Complete 10/06/24 19:32 Voided Urine Urine Culture - Final Complete 10/05/24 17:03 Blood Blood Culture - Preliminary NO GROWTH AFTER 72 HOURS OF INCUBATION. Resulted Problem List/Assessment/Plan Problem List/Assessment/Plan Assessment/plan Cardiology #hyperlipidemia -will resume home Meds once Neurology # Altered level of consciousness likely due to metabolic encephalopathy due to ?sepsis/hepatic encephalopathy -ammonia levels -IV fluids, IV antibiotics Respiratory #Acute hypoxic respiratory failure likely due to sepsis -IV antibiotics -sputum culture GI # Upper GI bleed -IV fluids -monitor H and H -GI consult -Protonix drip, discontinued, switched to IV protonix -octreotide drip considering liver cirrhosis seen on CT, discontinued #erosive esophagitis and multiple distal esophageal ulcers -seen on EGD -IV protonix BID # Suspected small bowel obstruction with possible transition point in the right esdras-abdomen -seen on CT -NPO -Surgical consult -repeat Small bowel follow with Gastrografin as recommended by the surgeon NG tube KUB am per surgeon -IV clinimix started by surgeon # Cholelithiasis -seen on CT # Liver cirrhosis -seen on CT Musculoskeletal #Chronic appearing compression fracture of the L4 vertebral body. -pt not symptomatic. #History of arthritis Nephrology #hypernatremia -d5w@50cc/hr Psychiatry #history of schizophrenia Endocrine #hypothyroidism will resume home Meds once patient is started on diet Urology #Hematuria -UA Code status , Full code as of now, since patient is confused and no family contact Case discussion with Dr Millard Downgraded to Med Surg Plan discussed with: Patient, Other My Orders My Orders Orders - PARK SARMIENTO Procedure Category Date Status Time Creatinine LAB 10/10/24 Verified 05:00 Throat Lozenges PHA 10/09/24 In Process (Cepastat Lozenges) 11:15 Kub Abdomen Single XY 10/09/24 Taken View 13:18 Kub Abdomen Single XY 10/10/24 Logged View 07:00 Dietary Evaluation Review Comments: 1. 10/07 Gastric dreanage total 2650 ml, No EN untill Gastric dranage is down to 500ml or less 2. When EN is feasible, consider Jevity 50ml/hr (67g pr 1440kcal), TF plus clinimix will proivde 109.5 g Pro and 1950 kcal to pt. 3. TPN per pharmacy in addition to clinimix i fPO or EN are not the options. Expected Outcomes/Goals: maintain weight, improved GI function, healed wounds if any. Date of Service: Oct 09, 2024 Billing Provider: REBEKA MILLARD MD Common Visit Codes: [id number] INP/OBS CARE(MOD) PARK SARMIENTO RESIDENT Oct 09, 2024 15:43 REBEKA MILLARD MD Oct 10, 2024 08:28
[2024-10-09] MEDS: THROAT LOZENGES(CEPASTAT) MT PRN (16:09)
--- NOTE | 2024-10-09 16:11 | DVH ---
Exam: XY KUB ABDOMEN SINGLE VIEW Indication: SBO Comparison: XY KUB ABDOMEN SINGLE VIEW on DOS: 10/07/24 Technique: 2 radiographic views of the abdomen. Findings: Enteric tube tip is in the stomach Nonobstructive bowel gas pattern noted. Contrast is seen throughout the colon There is no definite evidence for pneumoperitoneum. No abnormal calcifications noted. Impression: 1. Enteric tube tip is in good position. 2. Nonobstructive bowel gas pattern
[2024-10-09] MEDS: POTASSIUM PHOSPHATE 26.4 MEQ in SODIUM CHL 0.9% 100 ML IV ONE (17:47)
--- NOTE | 2024-10-09 22:30 | DVHPN2 ---
Progress Note - Dictate Date Seen: Oct 09, 2024 Medical Necessity Reason Pt with a Central, PICC or Fol: No Subjective Patient seen at bedside NG tube was reinserted yesterday About 750 mL of dark bile and blackish material was aspirated Patient is hungry and wants to eat Patient has not had a bowel movement and may have passed a small amount of gas Patient had hematuria which has since resolved No active GI bleeding reported other than dark aspirate from the NG tube Patient states he is lactose intolerant and if he drinks milk he will have good bowel movements vital signs Vital Sign Date Time Temp Pulse Resp B/P (MAP) Pulse Ox O2 Delivery O2 Flow Rate FiO2 10/09/24 21:00 99.1 83 19 124/65 (84) 91 99.1 10/09/24 20:00 Nasal Cannula* 2 28 Total Intake and Output 10/08/24 10/08/24 10/09/24 15:00 23:00 07:00 Intake Total 200 ml 860 ml 150 ml Output Total 200 ml Balance 200 ml 860 ml -50 ml medications Current Medications Medications Dose Ordered Sig/Jake Route Start Time Stop Time Status Last Admin Dose Admin Cefepime HCl 50 ml @ 12.5 mls/hr Q8H IV 10/06/24 04:00 10/09/24 21:03 12.5 MLS/HR Metronidazole 100 ml @ 100 mls/hr Q8H IV 10/06/24 00:00 10/09/24 16:44 100 MLS/HR Vancomycin HCl 0 ml @ 0 mls/hr UD IV 10/05/24 23:15 Pantoprazole Sodium 40 mg BID IV 10/06/24 10:00 10/09/24 21:03 40 MG Amino Acids 0 ml @ 0 mls/hr PER PHARMACY IV 10/07/24 14:30 Diagnostic Test (Pha) 1 strip Q6HR 10/07/24 18:00 10/09/24 16:51 1 STRIP Insulin Human Regular FOLLOW SLIDING SCALE Q6HR SC 10/07/24 18:00 Dextrose 50 ml UD IV 10/07/24 16:30 Amino Acids 1,000 ml @ 41 mls/hr DAILY@2200 IV 10/07/24 22:00 10/09/24 21:04 41 MLS/HR Vancomycin HCl 250 ml @ 250 mls/hr Q24H IV 10/08/24 09:00 10/09/24 09:37 250 MLS/HR Morphine Sulfate 0.5 mg Q6HP PRN IV 10/08/24 15:00 10/09/24 10:00 0.5 MG Throat Lozenges 1 shon Q4HP PRN MT 10/09/24 11:15 10/09/24 16:09 1 SHON objective General Appearance: Alert, Oriented x 3 Respiratory: Clear to auscultation, Normal air movement Cardiovascular: Regular rate, Normal S1, Normal S2 Abdominal: Abdominal distention, mild diffuse tenderness, hypoactive bowel sounds Extremities: No cyanosis, No edema, Normal pulses, No tenderness/swelling laboratory and microbiology Laboratory Tests 10/09/24 06:38 Test 10/09/24 06:38 Range/Units Serum Glucose 74 74-106 mg/dL CXR /ABD / PELVIS Impression: 1. Enteric tube tip is in good position. 2. Nonobstructive bowel gas pattern SMALL BOWEL SERIES FINDINGS/IMPRESSION: Initial manager portable view of the abdomen and pelvis demonstrates nonspecific, nonobstructive bowel-gas pattern and enteric contrast within the colon. Nasogastric tube in satisfactory position overlying the stomach. Problems(with codes): (1) Hematuria (2) Coffee ground emesis (3) SBO (small bowel obstruction) (4) Cirrhosis (5) Dehydration (6) Ascites (7) Hematemesis Prognosis Plan Gastrografin contrast has reached the colon Await bowel activity If patient starts moving his bowels then we will clamp NG tube and start clear liquid diet IV Protonix 40 mg q.12 hours DC aspirin NSAIDs smoking alcohol Surgical follow up appreciated Dietary Evaluation Review Comments: 1. 10/07 Gastric dreanage total 2650 ml, No EN untill Gastric dranage is down to 500ml or less 2. When EN is feasible, consider Jevity 50ml/hr (67g pr 1440kcal), TF plus clinimix will proivde 109.5 g Pro and 1950 kcal to pt. 3. TPN per pharmacy in addition to clinimix i fPO or EN are not the options. Expected Outcomes/Goals: maintain weight, improved GI function, healed wounds if any. Plan discussed with: Patient, Other (Dr Belkis Garcia and Dinah Link) RAMYA GARCIA MD Oct 09, 2024 22:30
[2024-10-10] VITALS (7 sets, daily range): BP systolic 99–121; BP diastolic 63–72; PULSE 78–104; RESP 15–20; TEMP 97.9–99.3; O2SAT 91–93
--- NOTE | 2024-10-10 06:55 | DVH ---
Exam: XY KUB ABDOMEN SINGLE VIEW Indication: FOLLOW UP SBS Comparison: XY KUB ABDOMEN SINGLE VIEW on DOS: 10/09/24, XY KUB ABDOMEN SINGLE VIEW on DOS: 10/07/24 Technique: 2 views of the abdomen were obtained Impression: Enteric tube tip in the region of the stomach. There are dilated loops of small bowel in the upper ab domen measuring up to 4.5 cm , however improved from prior CT. No evidence of free air. Right femoral pin. Retained contrast is noted in the colon.
--- NOTE | 2024-10-10 12:52 | DVH ---
Exam: XY KUB ABDOMEN SINGLE VIEW Indication: Followup Comparison: XY KUB ABDOMEN SINGLE VIEW on DOS: 10/10/24, XY KUB ABDOMEN SINGLE VIEW on DOS: 10/09/24, X Y KUB ABDOMEN SINGLE VIEW on DOS: 10/07/24 Technique: 3 radiographic views of the abdomen. Findings: Enteric catheter side port at the GE junction. Abnormal nonspecific bowel-gas pattern. Enteric contrast in the colon. There is no definite evidence for pneumoperitoneum. No abnormal calcifications noted. Impression: Abnormal nonspecific bowel-gas pattern. Recommend advancement of enteric catheter by 3 cm.
[2024-10-10 13:16] LABS: Basophils # (auto) 0 10 ^3/uL (0-0.2); Basophils % (auto) 0.2 % (0.0-2.0); Eosinophils # (auto) 0.1 10 ^3/uL (0-0.8); Hematocrit 39.6 % (41.0-53.0); Lymphocytes # (auto) 2.2 10 ^3/uL (0.4-5.4); Lymphocytes % (auto) 23.8 % (10.0-50.0); Mean Corpuscular Hemoglobin 30.8 pg (28.0-32.0); Mean Corpuscular Hgb Conc. 32.8 g/dL (32.0-36.0); Mean Corpuscular Volume 93.9 fL (80.0-100.0); Monocytes # (auto) 0.9 10 ^3/uL (0-1.3); Monocytes % (auto) 9.8 % (0.0-12.0); Neutrophils % (auto) 65.2 % (37.0-80.0); Nucleated Red Blood Cells % 0.1 %; Platelet Count (auto) 235 10^3/uL (140-450); Red Blood Cells 4.22 10^6/uL (4.5-5.90); Red Cell Distribution Width 13.9 % (11.8-14.3); White Blood Cell 9.1 10^3/uL (4.4-10.8)
[2024-10-10 13:41] LABS: Alanine Aminotransferase 15 U/L (7-40); Alkaline Phosphatase 92 U/L (46-116); Anion Gap 7 (5-15); Aspartate Aminotransferase 18 U/L (13-40); BUN/Creatinine Ratio 11.6 (10.0-20.0); Carbon Dioxide 26 mmol/L (20-31); Chloride 106 mmol/L (98-107); Magnesium 1.8 mg/dL (1.6-2.6); Sodium 139 mmol/L (136-145)
[2024-10-10 13:42] LABS: Bilirubin, Total 1.1 mg/dL (0.2-1.0); Total Protein 5.9 g/dL (5.7-8.2)
[2024-10-10 13:44] LABS: Albumin 2.9 g/dL (3.2-4.8); Blood Urea Nitrogen 8 mg/dL (9-23); Calcium 8.4 mg/dL (8.7-10.4); Glucose 109 mg/dL (74-106); Phosphorus 1.7 mg/dL (2.4-5.1); Potassium 3.1 mmol/L (3.5-5.1)
--- NOTE | 2024-10-10 13:49 | DVHPNRES ---
Progress Note Date Seen: Oct 10, 2024 Resident Creating Document: PARK SAMRIENTO RESIDENT Medical Necessity Reason Pt with a Central, PICC or Fol: No Subjective Review of Systems pt seen and examined at bedside had a bowel movement today. Objective vital signs Vital Sign Date Time Temp Pulse Resp B/P (MAP) Pulse Ox O2 Delivery O2 Flow Rate FiO2 10/10/24 11:40 101 18 99/72 10/10/24 08:30 98.3 91 98.3 10/10/24 08:00 Room Air* 0 21 Total Intake and Output 10/09/24 10/09/24 10/10/24 15:00 23:00 07:00 Intake Total 350 ml 1306.000 ml 150 ml Output Total 750 ml 1250 ml Balance 350 ml 556.000 ml -1100 ml medications Current Medications Medications Dose Ordered Sig/Jake Route Start Time Stop Time Status Last Admin Dose Admin Cefepime HCl 50 ml @ 12.5 mls/hr Q8H IV 10/06/24 04:00 10/10/24 12:19 12.5 MLS/HR Metronidazole 100 ml @ 100 mls/hr Q8H IV 10/06/24 00:00 10/10/24 07:59 100 MLS/HR Pantoprazole Sodium 40 mg BID IV 10/06/24 10:00 10/10/24 10:57 40 MG Amino Acids 0 ml @ 0 mls/hr PER PHARMACY IV 10/07/24 14:30 Diagnostic Test (Pha) 1 strip Q6HR 10/07/24 18:00 10/10/24 12:00 1 STRIP Insulin Human Regular FOLLOW SLIDING SCALE Q6HR SC 10/07/24 18:00 Dextrose 50 ml UD IV 10/07/24 16:30 Amino Acids 1,000 ml @ 41 mls/hr DAILY@2200 IV 10/07/24 22:00 10/09/24 21:04 41 MLS/HR Morphine Sulfate 0.5 mg Q6HP PRN IV 10/08/24 15:00 10/10/24 10:59 0.5 MG Throat Lozenges 1 shon Q4HP PRN MT 10/09/24 11:15 10/10/24 11:17 1 SHON Examination General Appearance: Cooperative. Well developed. Well nourished. NAD Head Exam: Normal inspection Neck Exam: Normal inspection. Non-tender. Normal alignment Pulmonary/Respiratory: Chest non-tender. Clear bilateral breath sounds, no crackles, no wheezing. Cardiovascular/Chest: Regular rate and rhythm. No murmurs. No JVD. Peripheral Pulses: 2+ Radial (R). 2+ Radial (L). 2+ Pedal (R). 2+ Pedal (L) Abdominal Exam: softer abd compared to yesterday Ankle Exam: Negative ankle edema Lower extremities: Negative lower extremity edema Neuro/Mental Status: A&O x2. Coherent. Skin Exam: Normal inspection. Normal color. Warm. Dry laboratory and microbiology Laboratory Tests 10/10/24 12:50 Test 10/10/24 12:50 Range/Units Serum Glucose 109 H 74-106 mg/dL Microbiology Date/Time Source Procedure Growth Status 10/09/24 04:29 Nose MRSA Screen - Final Complete 10/06/24 19:32 Voided Urine Urine Culture - Final Complete 10/05/24 17:03 Blood Blood Culture - Preliminary NO GROWTH AFTER 72 HOURS OF INCUBATION. Resulted Labs and/or images reviewed: Labs reviewed by me, Image(s) reviewed by me Problem List/Assessment/Plan Problem List/Assessment/Plan Assessment/plan Cardiology #hyperlipidemia -will resume home Meds once Neurology # Altered level of consciousness likely due to metabolic encephalopathy due to ?sepsis/hepatic encephalopathy -ammonia levels -IV fluids, IV antibiotics Respiratory #Acute hypoxic respiratory failure likely due to sepsis -IV antibiotics -sputum culture GI # Upper GI bleed -IV fluids -monitor H and H -GI consult -Protonix drip, discontinued, switched to IV protonix -octreotide drip considering liver cirrhosis seen on CT, discontinued #erosive esophagitis and multiple distal esophageal ulcers -seen on EGD -IV protonix BID # Suspected small bowel obstruction with possible transition point in the right esdras-abdomen -seen on CT -NPO -Surgical consult -repeat Small bowel follow with Gastrografin as recommended by the surgeon NG tube KUB am per surgeon -IV clinimix started by surgeon pt had a bowel movement today, As per surgeon recommendation, will clamp the NG tube, if output is <100ml in next 1 hour, will start the clear liquid diet # Cholelithiasis -seen on CT # Liver cirrhosis -seen on CT Musculoskeletal #Chronic appearing compression fracture of the L4 vertebral body. -pt not symptomatic. #History of arthritis Nephrology #hypernatremia -d5w@50cc/hr Psychiatry #history of schizophrenia Endocrine #hypothyroidism will resume home Meds once patient is started on diet Urology #Hematuria -UA Code status , Full code as of now, since patient is confused and no family contact Case discussion with Dr Millard Downgraded to Med Surg Plan discussed with: Patient, Other My Orders My Orders Orders - PARK SARMIENTO Procedure Category Date Status Time Pt Request For Service PT 10/10/24 Logged 08:51 Sequential ERLINDA 10/10/24 In Process Compression Device 08:51 Up In Chair Qid ERLINDA 10/10/24 In Process 10:30 Potassium Chl Malcolm PHA 10/10/24 Verified KCL 13:45 Dietary Evaluation Review Comments: 1. 10/07 Gastric dreanage total 2650 ml, No EN untill Gastric dranage is down to 500ml or less 2. When EN is feasible, consider Jevity 50ml/hr (67g pr 1440kcal), TF plus clinimix will proivde 109.5 g Pro and 1950 kcal to pt. 3. TPN per pharmacy in addition to clinimix i fPO or EN are not the options. Expected Outcomes/Goals: maintain weight, improved GI function, healed wounds if any. Date of Service: Oct 10, 2024 Billing Provider: REBEKA MILLARD MD Common Visit Codes: [id number] INP/OBS CARE(MOD) PARK SARMIENTO Oct 10, 2024 13:49 REBEKA MILLARD MD Oct 11, 2024 16:45
--- NOTE | 2024-10-10 14:58 | DVHPN2 ---
Progress Note Date Seen: Oct 10, 2024 Medical Necessity Reason Pt with a Central, PICC or Fol: No Objective vital signs Vital Sign Date Time Temp Pulse Resp B/P (MAP) Pulse Ox O2 Delivery O2 Flow Rate FiO2 10/10/24 13:00 99.3 100 15 99/72 (81) 91 99.3 10/10/24 08:00 Room Air* 0 21 Total Intake and Output 10/09/24 10/09/24 10/10/24 15:00 23:00 07:00 Intake Total 350 ml 1306.000 ml 150 ml Output Total 750 ml 1250 ml Balance 350 ml 556.000 ml -1100 ml medications Current Medications Medications Dose Ordered Sig/Jake Route Start Time Stop Time Status Last Admin Dose Admin Cefepime HCl 50 ml @ 12.5 mls/hr Q8H IV 10/06/24 04:00 10/10/24 12:19 12.5 MLS/HR Metronidazole 100 ml @ 100 mls/hr Q8H IV 10/06/24 00:00 10/10/24 07:59 100 MLS/HR Pantoprazole Sodium 40 mg BID IV 10/06/24 10:00 10/10/24 10:57 40 MG Amino Acids 0 ml @ 0 mls/hr PER PHARMACY IV 10/07/24 14:30 Diagnostic Test (Pha) 1 strip Q6HR 10/07/24 18:00 10/10/24 12:00 1 STRIP Insulin Human Regular FOLLOW SLIDING SCALE Q6HR SC 10/07/24 18:00 Dextrose 50 ml UD IV 10/07/24 16:30 Amino Acids 1,000 ml @ 41 mls/hr DAILY@2200 IV 10/07/24 22:00 10/09/24 21:04 41 MLS/HR Morphine Sulfate 0.5 mg Q6HP PRN IV 10/08/24 15:00 10/10/24 10:59 0.5 MG Throat Lozenges 1 shon Q4HP PRN MT 10/09/24 11:15 10/10/24 11:17 1 SHON Potassium Chloride 100 ml @ 50 mls/hr Q2H IV 10/10/24 13:45 10/10/24 17:44 laboratory and microbiology Laboratory Tests 10/10/24 12:50 Test 10/10/24 12:50 Range/Units Serum Glucose 109 H 74-106 mg/dL Microbiology Date/Time Source Procedure Growth Status 10/09/24 04:29 Nose MRSA Screen - Final Complete 10/06/24 19:32 Voided Urine Urine Culture - Final Complete 10/05/24 17:03 Blood Blood Culture - Preliminary NO GROWTH AFTER 72 HOURS OF INCUBATION. Resulted Problem List/Assessment/Plan Problem List/Assessment/Plan AFEBRILE VSS ABD SOFT LESS DISTENDED BM+ FLATUS + GASTROGRAFIN STUDY RESOLVED SBO CLAMP NG DC NG IF RESIDUAL LESS THAN 100 CC ALLOW CLEAR LIQUIDS CLEARED FOR DISCHARGE Plan discussed with: Patient Dietary Evaluation Review Comments: 1. 10/07 Gastric dreanage total 2650 ml, No EN untill Gastric dranage is down to 500ml or less 2. When EN is feasible, consider Jevity 50ml/hr (67g pr 1440kcal), TF plus clinimix will proivde 109.5 g Pro and 1950 kcal to pt. 3. TPN per pharmacy in addition to clinimix i fPO or EN are not the options. Expected Outcomes/Goals: maintain weight, improved GI function, healed wounds if any. VIOLETA LEVY MD Oct 10, 2024 14:58
[2024-10-10] MEDS: POTASSIUM CHL 20MEQ/100ML 100 ML IV SCH (16:45)
[2024-10-10] MEDS: SODIUM PHOSPHATES 20 MEQ in SODIUM CHL 0.9% 100 ML IV SCH (17:43)
[2024-10-10] MEDS: PANTOPRAZOLE 40 MG TAB PO SCH (17:57)
[2024-10-10] MEDS: POTASSIUM EFFERVESENT TAB 25 MEQ PO ONE (17:57)
[2024-10-10] MEDS: CEPHALEXIN 250 MG CAP PO SCH (17:57)
--- NOTE | 2024-10-10 20:49 | DVHPN2 ---
Progress Note - Dictate Date Seen: Oct 10, 2024 Medical Necessity Reason Pt with a Central, PICC or Fol: No Subjective Patient had a bowel movement today Gastrografin series and abdominal x-ray shows contrast in the colon Patient had hematuria which has since resolved No active GI bleeding reported other than dark aspirate from the NG tube; hemoglobin stable at 13 Patient states he is lactose intolerant and if he drinks milk he will have good bowel movements vital signs Vital Sign Date Time Temp Pulse Resp B/P (MAP) Pulse Ox O2 Delivery O2 Flow Rate FiO2 10/10/24 20:00 17 91 Room Air* 0 21 10/10/24 17:06 98.3 104 112/64 (80) 98.3 Total Intake and Output 10/09/24 10/09/24 10/10/24 15:00 23:00 07:00 Intake Total 350 ml 1306.000 ml 150 ml Output Total 750 ml 1250 ml Balance 350 ml 556.000 ml -1100 ml medications Current Medications Medications Dose Ordered Sig/Jake Route Start Time Stop Time Status Last Admin Dose Admin Diagnostic Test (Pha) 1 strip Q6HR 10/07/24 18:00 10/10/24 17:33 1 STRIP Insulin Human Regular FOLLOW SLIDING SCALE Q6HR SC 10/07/24 18:00 Dextrose 50 ml UD IV 10/07/24 16:30 Throat Lozenges 1 shon Q4HP PRN MT 10/09/24 11:15 10/10/24 11:17 1 SHON Sodium Phosphate 20 meq/Sodium Chloride 105 ml @ 26.25 mls/ hr Q4H IV 10/10/24 18:00 10/11/24 01:59 10/10/24 17:43 26.25 MLS/HR Pantoprazole Sodium 40 mg BID@0600,1700 PO 10/10/24 17:00 10/10/24 17:57 40 MG Cephalexin 500 mg Q6HR PO 10/10/24 18:00 10/10/24 17:57 500 MG Metronidazole 500 mg Q8HR PO 10/10/24 22:00 Acetaminophen 650 mg Q4HP PRN PO 10/10/24 17:00 objective General Appearance: Alert, Oriented x 3 Respiratory: Clear to auscultation, Normal air movement Cardiovascular: Regular rate, Normal S1, Normal S2 Abdominal: Abdominal distention, mild diffuse tenderness, hypoactive bowel sounds Extremities: No cyanosis, No edema, Normal pulses, No tenderness/swelling laboratory and microbiology Laboratory Tests 10/10/24 12:50 Test 10/10/24 12:50 Range/Units Serum Glucose 109 H 74-106 mg/dL Problems(with codes): (1) Hematuria (2) Coffee ground emesis (3) SBO (small bowel obstruction) (4) Cirrhosis (5) Ascites (6) Dehydration (7) Hematemesis Prognosis Plan Clamp NG-tube and if there was no nausea vomiting then start clear liquid diet IV Protonix 40 mg q.12 hours Physical therapy and ambulate patient Discharge planning when more stable There is concern regarding very dark black liquid aspirin in the stomach Patient will need to be discharged on Protonix and Caraf[place] [facility] Dietary Evaluation Review Comments: 1. 10/07 Gastric dreanage total 2650 ml, No EN untill Gastric dranage is down to 500ml or less 2. When EN is feasible, consider Jevity 50ml/hr (67g pr 1440kcal), TF plus clinimix will proivde 109.5 g Pro and 1950 kcal to pt. 3. TPN per pharmacy in addition to clinimix i fPO or EN are not the options. Expected Outcomes/Goals: maintain weight, improved GI function, healed wounds if any. Plan discussed with: Patient RAMYA LEVY MD Oct 10, 2024 20:49
[2024-10-10] MEDS: metroNIDAZOLE 500 MG TAB PO SCH (22:17)
[2024-10-11] VITALS (8 sets, daily range): BP systolic 101–120; BP diastolic 54–65; PULSE 68–102; RESP 16–18; TEMP 97.6–98.7; O2SAT 90–98
[2024-10-11] MEDS: ACETAMINOPHEN 325 MG TAB PO PRN (04:46)
[2024-10-11] MEDS: ONDANSETRON HCL 4 MG/2 ML VIAL IV ONE (10:02)
[2024-10-11 15:49] LABS: Anion Gap 6 (5-15); Carbon Dioxide 29 mmol/L (20-31); Chloride 104 mmol/L (98-107); GFR African American 122 mL/min; GFR Non-African American 101 mL/min; Magnesium 1.9 mg/dL (1.6-2.6); Sodium 139 mmol/L (136-145)
[2024-10-11 15:55] LABS: Basophils # (auto) 0 10 ^3/uL (0-0.2); Basophils % (auto) 0.4 % (0.0-2.0); Eosinophils # (auto) 0.1 10 ^3/uL (0-0.8); Eosinophils % (auto) 1.8 % (0.0-7.0); Hematocrit 36.1 % (41.0-53.0); Hemoglobin 12.7 g/dL (13.5-17.5); Lymphocytes # (auto) 1.8 10 ^3/uL (0.4-5.4); Lymphocytes % (auto) 27.7 % (10.0-50.0); Mean Corpuscular Hemoglobin 31.7 pg (28.0-32.0); Mean Corpuscular Hgb Conc. 35.2 g/dL (32.0-36.0); Mean Corpuscular Volume 90.3 fL (80.0-100.0); Monocytes # (auto) 0.8 10 ^3/uL (0-1.3); Monocytes % (auto) 12.8 % (0.0-12.0); Neutrophils # (auto) 3.8 10 ^3/uL (1.6-8.6); Neutrophils % (auto) 57.3 % (37.0-80.0); Platelet Count (auto) 213 10^3/uL (140-450); Red Cell Distribution Width 13.5 % (11.8-14.3); White Blood Cell 6.6 10^3/uL (4.4-10.8)
[2024-10-11 15:57] LABS: Albumin 2.8 g/dL (3.2-4.8); BUN/Creatinine Ratio 6.2 (10.0-20.0); Blood Urea Nitrogen < 5 mg/dL (9-23); Calcium 8.2 mg/dL (8.7-10.4); Glucose 137 mg/dL (74-106); Potassium 3.2 mmol/L (3.5-5.1)
--- NOTE | 2024-10-11 19:48 | DVHPNRES ---
Progress Note Date Seen: Oct 11, 2024 Resident Creating Document: PARK SARMIENTO RESIDENT Medical Necessity Reason Pt with a Central, PICC or Fol: No Subjective Review of Systems pt seen and examined at bedside, mentioning of improvement in his symptoms. As per nurse, patient had bowel movement that was dark colored blood, and b Objective vital signs Vital Sign Date Time Temp Pulse Resp B/P (MAP) Pulse Ox O2 Delivery O2 Flow Rate FiO2 10/11/24 16:53 98.7 92 18 104/64 (77) 98 98.7 10/11/24 08:00 Room Air* 0 21 Total Intake and Output 10/10/24 10/10/24 10/11/24 15:00 23:00 07:00 Intake Total 100 ml 1216.25 ml 700 ml Output Total 501 ml 900 ml Balance 100 ml 715.25 ml -200 ml medications Current Medications Medications Dose Ordered Sig/Jake Route Start Time Stop Time Status Last Admin Dose Admin Diagnostic Test (Pha) 1 strip Q6HR 10/07/24 18:00 10/11/24 16:48 1 STRIP Insulin Human Regular FOLLOW SLIDING SCALE Q6HR SC 10/07/24 18:00 10/11/24 16:47 2 UNITS Dextrose 50 ml UD IV 10/07/24 16:30 Throat Lozenges 1 shon Q4HP PRN MT 10/09/24 11:15 10/10/24 11:17 1 SHON Cephalexin 500 mg Q6HR PO 10/10/24 18:00 10/11/24 16:37 500 MG Metronidazole 500 mg Q8HR PO 10/10/24 22:00 10/11/24 12:42 500 MG Acetaminophen 650 mg Q4HP PRN PO 10/10/24 17:00 10/11/24 04:46 650 MG Pantoprazole Sodium 40 mg BID IV 10/11/24 22:00 UNV Examination General Appearance: Cooperative. Well developed. Well nourished. NAD Head Exam: Normal inspection Neck Exam: Normal inspection. Non-tender. Normal alignment Pulmonary/Respiratory: Chest non-tender. Clear bilateral breath sounds, no crackles, no wheezing. Cardiovascular/Chest: Regular rate and rhythm. No murmurs. No JVD. Peripheral Pulses: 2+ Radial (R). 2+ Radial (L). 2+ Pedal (R). 2+ Pedal (L) Abdominal Exam: softer abd compared to yesterday Ankle Exam: Negative ankle edema Lower extremities: Negative lower extremity edema Neuro/Mental Status: A&O x2. Coherent. Skin Exam: Normal inspection. Normal color. Warm. Dry laboratory and microbiology Laboratory Tests 10/11/24 14:02 Test 10/11/24 14:02 Range/Units Serum Glucose 137 H 74-106 mg/dL Microbiology Date/Time Source Procedure Growth Status 10/09/24 04:29 Nose MRSA Screen - Final Complete 10/06/24 19:32 Voided Urine Urine Culture - Final Complete 10/05/24 17:03 Blood Blood Culture - Final NO GROWTH AFTER 5 DAYS OF INCUBATION. Complete Problem List/Assessment/Plan Problem List/Assessment/Plan Assessment/plan Cardiology #hyperlipidemia -will resume home Meds once Neurology # Altered level of consciousness likely due to metabolic encephalopathy due to ?sepsis/hepatic encephalopathy -ammonia levels -IV fluids, IV antibiotics Respiratory #Acute hypoxic respiratory failure likely due to sepsis -IV antibiotics -sputum culture GI # Upper GI bleed -IV fluids -monitor H and H -GI consult -Protonix drip, discontinued, switched to IV protonix -octreotide drip considering liver cirrhosis seen on CT, discontinued #Hematochezia -restarted Protonix IV BID -GI on board -planned for colonoscopy #erosive esophagitis and multiple distal esophageal ulcers -seen on EGD -IV protonix BID # Suspected small bowel obstruction with possible transition point in the right esdras-abdomen -seen on CT -NPO -Surgical consult -repeat Small bowel follow with Gastrografin as recommended by the surgeon NG tube KUB am per surgeon -IV clinimix started by surgeon pt had a bowel movement today, As per surgeon recommendation, will clamp the NG tube, if output is <100ml in next 1 hour, will start the clear liquid diet # Cholelithiasis -seen on CT # Liver cirrhosis -seen on CT Musculoskeletal #Chronic appearing compression fracture of the L4 vertebral body. -pt not symptomatic. #History of arthritis Nephrology #hypernatremia -d5w@50cc/hr Psychiatry #history of schizophrenia Endocrine #hypothyroidism will resume home Meds once patient is started on diet Urology #Hematuria -UA Code status , Full code Case discussion with Dr Millard Plan discussed with: Patient, Other My Orders My Orders Orders - P[facility] SARMIENTO RESIDENT Procedure Category Date Status Time Insert Midline ORDERS 10/11/24 Transmitted 06:02 * Wound Consult CONS 10/11/24 Transmitted Pantoprazole PHA 10/11/24 Logged (Protonix) 22:00 Potassium Effervesent PHA 10/11/24 Logged Tab (Klor-Con/Ef) 19:15 Dietary Evaluation Review Comments: 1. 10/07 Gastric dreanage total 2650 ml, No EN untill Gastric dranage is down to 500ml or less 2. When EN is feasible, consider Jevity 50ml/hr (67g pr 1440kcal), TF plus clinimix will proivde 109.5 g Pro and 1950 kcal to pt. 3. TPN per pharmacy in addition to clinimix i fPO or EN are not the options. Expected Outcomes/Goals: maintain weight, improved GI function, healed wounds if any. Date of Service: Oct 11, 2024 Billing Provider: REBEKA MILLARD MD Common Visit Codes: [id number] INP/OBS CARE(MOD) PARK SARMIENTO RESIDENT Oct 11, 2024 19:48 REBEKA MILLARD MD Oct 15, 2024 19:49
--- NOTE | 2024-10-11 20:06 | DVHPN2 ---
Progress Note - Dictate Date Seen: Oct 11, 2024 Medical Necessity Reason Pt with a Central, PICC or Fol: No Subjective Patient had a bowel movement today ; nurse reported some blood in the stool Patient has not had a recent colonoscopy Hemoglobin hemoglobin stable at 12.7 Patient states he has homeless although he came from [facility] vital signs Vital Sign Date Time Temp Pulse Resp B/P (MAP) Pulse Ox O2 Delivery O2 Flow Rate FiO2 10/11/24 16:53 98.7 92 18 104/64 (77) 98 98.7 10/11/24 08:00 Room Air* 0 21 Total Intake and Output 10/10/24 10/10/24 10/11/24 14:59 22:59 06:59 Intake Total 100 ml 1216.25 ml 700 ml Output Total 501 ml 900 ml Balance 100 ml 715.25 ml -200 ml medications Current Medications Medications Dose Ordered Sig/Jake Route Start Time Stop Time Status Last Admin Dose Admin Diagnostic Test (Pha) 1 strip Q6HR 10/07/24 18:00 10/11/24 16:48 1 STRIP Insulin Human Regular FOLLOW SLIDING SCALE Q6HR SC 10/07/24 18:00 10/11/24 16:47 2 UNITS Dextrose 50 ml UD IV 10/07/24 16:30 Throat Lozenges 1 shon Q4HP PRN MT 10/09/24 11:15 10/10/24 11:17 1 SHON Cephalexin 500 mg Q6HR PO 10/10/24 18:00 10/11/24 16:37 500 MG Metronidazole 500 mg Q8HR PO 10/10/24 22:00 10/11/24 12:42 500 MG Acetaminophen 650 mg Q4HP PRN PO 10/10/24 17:00 10/11/24 04:46 650 MG Pantoprazole Sodium 40 mg BID IV 10/11/24 22:00 UNV objective General Appearance: Alert, Oriented x 3 Respiratory: Clear to auscultation, Normal air movement Cardiovascular: Regular rate, Normal S1, Normal S2 Abdominal: Abdominal distention, mild diffuse tenderness, hypoactive bowel sounds Extremities: No cyanosis, No edema, Normal pulses, No tenderness/swelling laboratory and microbiology Laboratory Tests 10/11/24 14:02 Test 10/11/24 14:02 Range/Units Serum Glucose 137 H 74-106 mg/dL Problems(with codes): (1) Hematuria (2) Coffee ground emesis (3) SBO (small bowel obstruction) (4) Cirrhosis (5) Ascites (6) Rectal bleeding Prognosis Plan Patient is agreeable to proceed with the bowel prep or a colonoscopy tomorrow Patient is somewhat unreliable and may not be able to come for outpatient colonoscopy and he did not want to follow up with the [place] Clear liquid diet today Bowel prep instructions ordered Colonoscopy on 10/12/2024 if the patient can complete a bowel prep Dietary Evaluation Review Comments: 1. 10/07 Gastric dreanage total 2650 ml, No EN untill Gastric dranage is down to 500ml or less 2. When EN is feasible, consider Jevity 50ml/hr (67g pr 1440kcal), TF plus clinimix will proivde 109.5 g Pro and 1950 kcal to pt. 3. TPN per pharmacy in addition to clinimix i fPO or EN are not the options. Expected Outcomes/Goals: maintain weight, improved GI function, healed wounds if any. Plan discussed with: Patient, Other (Nurse) RAMYA LEVY MD Oct 11, 2024 20:05
[2024-10-11] MEDS: GOLYTELY 4L KIT PO ONE (21:06)
[2024-10-11] MEDS: POTASSIUM EFFERVESENT TAB 25 MEQ PO ONE (21:06)
[2024-10-11] MEDS: PANTOPRAZOLE 40 MG/10 ML VIAL INJ IV SCH (21:06)
[2024-10-11 22:01] LABS: Hematocrit 36.7 % (41.0-53.0); Hemoglobin 12.4 g/dL (13.5-17.5)
[2024-10-12] VITALS (8 sets, daily range): BP systolic 104–121; BP diastolic 56–74; PULSE 55–102; RESP 14–20; TEMP 98–98.8; O2SAT 91–96
[2024-10-12 02:37] LABS: INR 1.3 (0.9-1.15); Partial Thromboplastin Time 28.3 SEC (24.5-34.5); Prothrombin Time 13.5 sec (9.3-11.8)
[2024-10-12] MEDS: MAGNESIUM CITRATE SOLUTION 300 ML BTL PO ONE (05:09)
[2024-10-12] MEDS: GOLYTELY 4L KIT PO ONE (05:10)
[2024-10-12] MEDS ORDERED: SIMETHICONE 40 MG/0.6 ML ORAL DROP ONE (07:42)
[2024-10-12 07:57] LABS: Chloride 103 mmol/L (98-107); Sodium 139 mmol/L (136-145)
[2024-10-12 07:58] LABS: Anion Gap 5 (5-15)
[2024-10-12 08:01] LABS: Calcium 8.3 mg/dL (8.7-10.4); Carbon Dioxide 31 mmol/L (20-31); Potassium 3.5 mmol/L (3.5-5.1)
[2024-10-12 08:04] LABS: Magnesium 1.9 mg/dL (1.6-2.6)
[2024-10-12 08:05] LABS: Basophils # (auto) 0.1 10 ^3/uL (0-0.2); Basophils % (auto) 0.7 % (0.0-2.0); Eosinophils # (auto) 0.1 10 ^3/uL (0-0.8); Eosinophils % (auto) 1.4 % (0.0-7.0); Hematocrit 35.9 % (41.0-53.0); Hemoglobin 12.3 g/dL (13.5-17.5); Lymphocytes # (auto) 2.1 10 ^3/uL (0.4-5.4); Lymphocytes % (auto) 28.8 % (10.0-50.0); Mean Corpuscular Hemoglobin 31.1 pg (28.0-32.0); Mean Corpuscular Hgb Conc. 34.3 g/dL (32.0-36.0); Mean Corpuscular Volume 90.5 fL (80.0-100.0); Monocytes % (auto) 13.3 % (0.0-12.0); Neutrophils # (auto) 4.1 10 ^3/uL (1.6-8.6); Neutrophils % (auto) 55.8 % (37.0-80.0); Nucleated Red Blood Cells % 0.2 %; Platelet Count (auto) 254 10^3/uL (140-450); Red Blood Cells 3.97 10^6/uL (4.5-5.90); Red Cell Distribution Width 13.7 % (11.8-14.3); White Blood Cell 7.4 10^3/uL (4.4-10.8)
[2024-10-12 08:08] LABS: BUN/Creatinine Ratio 7.1 (10.0-20.0); Blood Urea Nitrogen < 5 mg/dL (9-23); Glucose 116 mg/dL (74-106)
[2024-10-12] MEDS ORDERED: LIDOCAINE 1% INJ PF 5ML AMP ONE (12:59)
[2024-10-12] MEDS ORDERED: PROPOFOL 10 MG/ML 20 ML IV ONE (12:59)
--- NOTE | 2024-10-12 14:06 | DVHOP2 ---
Operative Report DATE OF OPERATION: 10/12/24 PROCEDURE: Diagnostic Colonoscopy. PREOPERATIVE INDICATION: The patient is a 69 -year-old male undergoing colonoscopy for evaluation of bowel obstruction and ileus constipation and rectal bleeding POSTOPERATIVE DIAGNOSES: 1. Patient had mild tortuosity and redundancy of the colon 2. 1+ internal hemorrhoids otherwise normal examination up to the cecum and terminal ileum with no active bleeding at this time PROCEDURE PERFORMED BY: Ramya Garcia M.D. SCOPE: Olympus videocolonoscope. ASA CLASS: 3. PREOPERATIVE MEDICATIONS: Kwan Hagen PROCEDURE IN DETAIL: After obtaining an informed consent, the patient was placed on left lateral decubitus position. He was then sedated with the above medications. A rectal examination was performed that was normal. The colonoscope was then passed through the anus into the rectosigmoid and through the descending, transverse, and ascending colon up to the cecum with visualization of the appendiceal orifice, base of the cecum and the ileocecal valve. The colonoscope was then withdrawn. The distal 3-5 cm of the terminal ileum were normal No polyps or masses were seen. There was no colitis or diverticular disease. There was liquid stool in the colon that was aspirated Patient had a somewhat long tortuous and redundant colon. Patient had normal liquid brown stool and no fresh or old blood in the colon On retroflexion and straight on view he had 1+ internal hemorrhoids with no active bleeding at this time The patient tolerated the procedure well without difficulty. WITHDRAWAL TIME: 9 minute QUALITY OF THE PREP: [place] Bowel Prep score: 8. COMPLICATIONS : None SPECIMENS: None DISPOSITION: Transfer back to the floor Stable PLAN: 1. Repeat colonoscopy in 10 years 2. Resume GI soft diet advance as tolerated 3. Local anorectal hemorrhoidal care 4. Patient is stable for discharge from GI point of view 5. Outpatient follow up with GI Services as needed 6. Maintained on Protonix and Carafate due to hiatal hernia and GERD RAMYA GARCIA MD Oct 12, 2024 14:06
[2024-10-12] MEDS: ARTIFICIAL TEAR OPTH(EYE) OINT 3.5GM RIGHTEYE ONE (17:30)
--- NOTE | 2024-10-12 18:16 | DVHPNRES ---
Progress Note Date Seen: Oct 12, 2024 Resident Creating Document: PARK SARMIENTO RESIDENT Medical Necessity Reason Pt with a Central, PICC or Fol: No Subjective Review of Systems pt seen and examined at bedside, mentions of no acute complaints but as per nurse had a bloody bowel movement scheduled for colonoscopy today. Objective vital signs Vital Sign Date Time Temp Pulse Resp B/P (MAP) Pulse Ox O2 Delivery O2 Flow Rate FiO2 10/12/24 17:00 98.6 55 17 121/74 (90) 93 98.6 10/12/24 14:25 Room Air 0 93 Total Intake and Output 10/11/24 10/11/24 10/12/24 15:00 23:00 07:00 Intake Total 800 ml 600 ml Output Total 1000 ml 1101 ml Balance -200 ml -501 ml medications Current Medications Medications Dose Ordered Sig/Jake Route Start Time Stop Time Status Last Admin Dose Admin Diagnostic Test (Pha) 1 strip Q6HR 10/07/24 18:00 10/12/24 11:49 1 STRIP Insulin Human Regular FOLLOW SLIDING SCALE Q6HR SC 10/07/24 18:00 10/11/24 16:47 2 UNITS Dextrose 50 ml UD IV 10/07/24 16:30 Throat Lozenges 1 shon Q4HP PRN MT 10/09/24 11:15 10/10/24 11:17 1 SHON Cephalexin 500 mg Q6HR PO 10/10/24 18:00 10/12/24 05:10 500 MG Metronidazole 500 mg Q8HR PO 10/10/24 22:00 10/12/24 05:09 500 MG Acetaminophen 650 mg Q4HP PRN PO 10/10/24 17:00 10/11/24 04:46 650 MG Pantoprazole Sodium 40 mg BID IV 10/11/24 22:00 10/12/24 11:19 40 MG Examination General Appearance: Cooperative. Well developed. Well nourished. NAD Pulmonary/Respiratory: Chest non-tender. Clear bilateral breath sounds, no crackles, no wheezing. Cardiovascular/Chest: Regular rate and rhythm. No murmurs. No JVD. Peripheral Pulses: 2+ Radial (R). 2+ Radial (L). 2+ Pedal (R). 2+ Pedal (L) Abdominal Exam: softer abd compared to yesterday Ankle Exam: Negative ankle edema Lower extremities: Negative lower extremity edema Neuro/Mental Status: A&O x2. Coherent. Skin Exam: Normal inspection. Normal color. Warm. Dry laboratory and microbiology Laboratory Tests 10/12/24 07:16 Test 10/12/24 07:16 Range/Units Serum Glucose 116 H 74-106 mg/dL Microbiology Date/Time Source Procedure Growth Status 10/09/24 04:29 Nose MRSA Screen - Final Complete 10/06/24 19:32 Voided Urine Urine Culture - Final Complete 10/05/24 17:03 Blood Blood Culture - Final NO GROWTH AFTER 5 DAYS OF INCUBATION. Complete Labs and/or images reviewed: Labs reviewed by me, Image(s) reviewed by me Problem List/Assessment/Plan Problem List/Assessment/Plan Assessment/plan Cardiology #hyperlipidemia -will resume home Meds once Neurology # Altered level of consciousness likely due to metabolic encephalopathy due to ?sepsis/hepatic encephalopathy -ammonia levels -IV fluids, IV antibiotics Respiratory #Acute hypoxic respiratory failure likely due to sepsis -IV antibiotics -sputum culture GI # Upper GI bleed -IV fluids -monitor H and H -GI consult -Protonix drip, discontinued, switched to IV protonix -octreotide drip considering liver cirrhosis seen on CT, discontinued #Hematochezia -restarted Protonix IV BID -GI on board -planned for colonoscopy today #erosive esophagitis and multiple distal esophageal ulcers -seen on EGD -IV protonix BID # Suspected small bowel obstruction with possible transition point in the right esdras-abdomen -seen on CT -NPO -Surgical consult -repeat Small bowel follow with Gastrografin as recommended by the surgeon NG tube KUB am per surgeon -IV clinimix started by surgeon pt had a bowel movement today, As per surgeon recommendation, will clamp the NG tube, if output is <100ml in next 1 hour, will start the clear liquid diet # Cholelithiasis -seen on CT # Liver cirrhosis -seen on CT Musculoskeletal #Chronic appearing compression fracture of the L4 vertebral body. -pt not symptomatic. #History of arthritis Nephrology #hypernatremia -d5w@50cc/hr Psychiatry #history of schizophrenia Endocrine #hypothyroidism will resume home Meds once patient is started on diet Urology #Hematuria -UA Code status , Full code; discussed for 20 minutes Case discussion with Dr Wisdom Discharge planning within 24-48 hrs Plan discussed with: Patient, Other My Orders My Orders Orders - GIRDHAR,PARK RESIDENT Procedure Category Date Status Time Pantoprazole PHA 10/11/24 In Process (Protonix) 22:00 * Laundry Operator CONS 10/12/24 Transmitted Consult Dietary Evaluation Review Comments: 1. 10/07 Gastric dreanage total 2650 ml, No EN untill Gastric dranage is down to 500ml or less 2. When EN is feasible, consider Jevity 50ml/hr (67g pr 1440kcal), TF plus clinimix will proivde 109.5 g Pro and 1950 kcal to pt. 3. TPN per pharmacy in addition to clinimix i fPO or EN are not the options. Expected Outcomes/Goals: maintain weight, improved GI function, healed wounds if any. Addendum Addendum Addendum I was physically present for the monet portions of the service provided to patient by THE RESIDENT. I have reviewed the documentation, discussed the case with resident and agree with the resident's documentation except as noted. Also the patient's clinical case was discussed with the patient's nurse. This medical document was created using an electronic medical record system with computerized dictation system. Although this document has been carefully reviewed, there might still be some phonetic and typographical errors. These areas are purely typographical due to imperfections of the software programs, and do not reflect any compromise in the patient's medical care. Late signature. Date of Service: Oct 12, 2024 Billing Provider: CRISTINE WISDOM MD Common Visit Codes: 34217-CPLELTTEHS INP/OBS CARE(HIGH) Secondary Visit Codes: 68946-[id number] CARE PLAN 30 MINUTES (20 minutes) PARK SARMIENTO RESIDENT Oct 12, 2024 18:16 CRISTINE WISDOM MD Oct 13, 2024 07:38
[2024-10-13] VITALS (7 sets, daily range): BP systolic 112–140; BP diastolic 67–71; PULSE 78–94; RESP 18–20; TEMP 98.2–99.3; O2SAT 93–98
[2024-10-13] MEDS ORDERED: PANT40TA2 PO (13:44)
[2024-10-13] MEDS ORDERED: SUCR1SUS26 PO (13:44)
[2024-10-13] MEDS: POLYETHYLENE GLYCOL 17 GM PWDR PO ONE (13:45)
--- NOTE | 2024-10-13 17:01 | DVHDSRES ---
Discharge Summary Date of Admission Resident Creating Document: PARK SARMIENTO Oct 05, 2024 at 16:04 Date of Discharge: Oct 13, 2024 Labs/Diagnostic Data: Laboratory Results Test 10/12/24 07:16 10/12/24 02:07 10/11/24 14:02 10/11/24 10:51 White Blood Count 7.4 10^3/uL (4.4-10.8) Red Blood Count 3.97 10^6/uL (4.5-5.90) Hemoglobin 12.3 g/dL (13.5-17.5) Hematocrit 35.9 % (41.0-53.0) Mean Corpuscular Volume 90.5 fL (80.0-100.0) Mean Corpuscular Hemoglobin 31.1 pg (28.0-32.0) Mean Corpuscular Hemoglobin Concent 34.3 g/dL (32.0-36.0) Red Cell Distribution Width 13.7 % (11.8-14.3) Platelet Count 254 10^3/uL (140-450) Mean Platelet Volume 7.1 fL (6.9-10.8) Neutrophils (%) (Auto) 55.8 % (37.0-80.0) Lymphocytes (%) (Auto) 28.8 % (10.0-50.0) Monocytes (%) (Auto) 13.3 % (0.0-12.0) Eosinophils (%) (Auto) 1.4 % (0.0-7.0) Basophils (%) (Auto) 0.7 % (0.0-2.0) Neutrophils # (Auto) 4.1 10 ^3/uL (1.6-8.6) Lymphocytes # (Auto) 2.1 10 ^3/uL (0.4-5.4) Monocytes # (Auto) 1.0 10 ^3/uL (0-1.3) Eosinophils # (Auto) 0.1 10 ^3/uL (0-0.8) Basophils # (Auto) 0.1 10 ^3/uL (0-0.2) Nucleated Red Blood Cells 0.2 % Sodium Level 139 mmol/L (136-145) Potassium Level 3.5 mmol/L (3.5-5.1) Chloride Level 103 mmol/L (98-107) Carbon Dioxide Level 31 mmol/L (20-31) Anion Gap 5 (5-15) Blood Urea Nitrogen < 5 mg/dL (9-23) Creatinine 0.70 mg/dL (0.700-1.30) Glomerular Filtration Rate Calc 101 mL/min (>90) BUN/Creatinine Ratio 7.1 (10.0-20.0) Serum Glucose 116 mg/dL (74-106) Calcium Level 8.3 mg/dL (8.7-10.4) Magnesium Level 1.9 mg/dL (1.6-2.6) Prothrombin Time 13.5 sec (9.3-11.8) Prothrombin Time INR 1.30 (0.9-1.15) Activated Partial Thromboplast Time 28.3 SEC (24.5-34.5) Estimated GFR () 122 mL/min Estimated GFR (Non- 101 mL/min Phosphorus Level 3.0 mg/dL (2.4-5.1) Albumin 2.8 g/dL (3.2-4.8) POC Glucose 124 mg/dl (70-106) Test 10/10/24 12:50 10/09/24 12:35 10/08/24 06:52 10/07/24 03:55 Total Bilirubin 1.1 mg/dL (0.2-1.0) Aspartate Amino Transferase (AST) 18 U/L (13-40) Alanine Aminotransferase (ALT) 15 U/L (7-40) Alkaline Phosphatase 92 U/L (46-116) Total Protein 5.9 g/dL (5.7-8.2) Urine Color Yellow (Yellow) Urine Clarity Clear (Clear) Urine pH 6.0 (5.0-9.0) Urine Specific [place] 1.020 (1.001-1.035) Urine Protein Trace (Negative) Urine Ketones 2+ (Negative) Urine Blood 1+ /uL (Negative) Urine Nitrite Negative (Negative) Urine Bilirubin Negative (Negative) Urine Urobilinogen Normal mg/dL (Negative) Urine Leukocyte Esterase Negative /uL (Negative) Urine RBC 35 /hpf (0 - 3) Urine WBC 2 /hpf (0 - 3) Urine Squamous Epithelial Cells None seen /hpf (<5) Urine Bacteria None seen /hpf (None Seen) Urine Glucose Normal mg/dL (Normal) Triglycerides Level 75 mg/dL (< 150) Random Vancomycin Level 7.5 ug/mL (5-10) Vancomycin Level Trough 41.9 ug/mL (5-10) Test 10/06/24 19:32 10/06/24 18:12 10/05/24 20:10 10/05/24 10:06 Urine Mucus Few (None Seen) Urine Opiates Screen Neg (NEGATIVE) Urine Fentanyl Screen Neg (NEGATIVE) Urine Barbiturates Screen Neg (NEGATIVE) Urine Phencyclidine Screen Neg (NEGATIVE) Urine Amphetamines Screen Neg (NEGATIVE) Urine Benzodiazepines Screen Neg (NEGATIVE) Urine Cocaine Screen Neg (NEGATIVE) Urine Cannabinoids Screen Neg (NEGATIVE) Lactic Acid Level 1.5 mmol/L (0.4-2.0) Plasma/Serum Blood Alcohol < 3.0 mg/dL (<10) Influenza Type A Antigen Negative (Negative) Influenza Type B Antigen Negative (Negative) SARS-CoV-2 Antigen (Rapid) Negative (NEGATIVE) Troponin I High Sensitivity 8 ng/L (</=54) Test 10/05/24 08:58 Ammonia 37 umol/L (11-32) Lactate Dehydrogenase 183 U/L (120-246) Lipase 25 U/L (12-53) Other Laboratory Tests 10/12/24 07:16 Brief Hx & Hospital Course: 69-year-old male patient with past medical history of schizophrenia, hypothyroidism, arthritis, hyperlipidemia, polysubstance use presented with complaints of coffee-ground emesis and abdominal distention. [facility] where it was noticed that patient started having vomiting that was coffee-ground in color and patient was sent to the ER. On initial evaluation, as per the nurse patient was covered in coffee-ground emesis. Patient was alert and oriented x2, was started on IV antibiotics due to possible sepsis, IV fluids for upper GI bleed, Protonix drip, octreotide drip considering liver cirrhosis seen on CT. CT scan showed possible small bowel obstruction with transition point in right hemiabdomen. Surgery was consulted. Patient was kept NPO. Later octeotoride was discontinued as patient did not have any further hematemesis and started on Protonix IV b.i.d. Patient had EGD done, which revealed 1. 2 cm sliding-type hiatal hernia with grade B to C erosive esophagitis and multiple distal esophageal ulcers, there were no varices 2. Moderate amount of retained dark bile and old coffee-ground in the stomach, about 1250 mL was aspirated and bile reflux was noted into the esophagus 3. Mild gastroduodenitis with mild inflammatory changes of the pyloric channel but there was no gastric outlet obstruction 4. Endoscope was advanced to 2nd part of the duodenum and bile was also noted refluxing back from the small intestine which was aspirated. Patient was started on NG tube Patient also had Gastrografin study done which revealed Initial seconds inspector view of the abdomen and pelvis demonstrates a gastrostomy tube projecting over the body of the stomach. Distended stomach and multiple small bowel loops in the abdomen Administration of contrast 60 mL Gastrografin via NG tube. There is no significant movement of contrast beyond the body of the stomach at 4 hours. Later during the hospital stay, patient had bowel movement, which was bloody per the nurse. NG tube was discontinued. Patient had colonoscopy done which revealed 1. Patient had mild tortuosity and redundancy of the colon 2. 1+ internal hemorrhoids otherwise normal examination up to the cecum and terminal ileum with no active bleeding at this time Retail Salesman was consulted for discharge planning. Patient mentioned improvement in his symptoms. At the time of discharge, patient had stable vitals, no new complaints. Discharge plan was discussed with the patient and patient was advised to follow up with PCP within one week and GI/surgeon within 1-2 weeks. Patient was prescribed on Protonix and Carafate. Examination on the day of discharge: General Appearance: Alert, Oriented X3, Cooperative, No acute distress Respiratory: Clear to auscultation, Normal air movement Cardiovascular: Regular rate, Normal S1, Normal S2 Abdominal: Normal bowel sounds, soft, nontender, no guarding, no rigidity Extremities: No cyanosis, No edema, Normal pulses, No tenderness/swelling Skin: No rashes, No breakdown Neuro: Speech and tone Discussed with Dr. Wisdom Consults/Reason for consult GI consult for upper GI bleed Surgery consult for small-bowel obstruction Operations or Procedures Operative Report DATE OF OPERATION: 10/08/24 PROCEDURE: Upper Endoscopy with biopsy. PREOPERATIVE INDICATION: The patient is a 69 -year-old male undergoing endoscopy for coffee-ground emesis abdominal pain and distention POSTOPERATIVE DIAGNOSES: 1. 2 cm sliding-type hiatal hernia with grade B to C erosive esophagitis and multiple distal esophageal ulcers, there were no varices 2. Moderate amount of retained dark bile and old coffee-ground in the stomach, about 1250 mL was aspirated and bile reflux was noted into the esophagus 3. Mild gastroduodenitis with mild inflammatory changes of the pyloric channel but there was no gastric outlet obstruction 4. Endoscope was advanced to 2nd part of the duodenum and bile was also noted refluxing back from the small intestine which was aspirated PROCEDURE PERFORMED BY: Ramya Levy GI NURSE: Shyann SCOPE: Olympus videoendoscope. ASA CLASS: 3 PREOPERATIVE MEDICATIONS: Mac kristina, Dr. Godinez PROCEDURE IN DETAIL: After obtaining an informed consent, the patient was placed on left lateral decubitus position. The patient was then sedated with the above medications. A bite block was placed between his teeth. The endoscope was then passed through the oropharynx, into the esophagus, and through the stomach and pylorus up to the second and third part of the duodenum. The endoscope was then withdrawn. The 2nd and 3rd part of the duodenal and the duodenal bulb were normal. Duodenal biopsies were obtained. Moderate amount of bile was seen refluxing back from the small intestine. There was mild pyloric channel inflammation. There was no gastric outlet obstruction. Patient had a dilated stomach with a large amount of retained dark bile and coffee grounds and stomach About 1250 mL was aspirated. Otherwise on retroflexion no mass or ulceration was seen in the stomach or cardia. Gastric biopsies were obtained The endoscope was then withdrawn into the distal esophagus where the patient had a 2-3 cm sliding-type hiatal hernia with grade B to C erosive esophagitis There were acute distal esophageal ulcers and moderate bile reflux was noted into the esophagus. GE junction biopsies were obtained. The remaining distal and proximal esophagus and oropharynx were unremarkable and there were noesophageal varices. The patient tolerated the procedure well without difficulty. COMPLICATIONS : None SPECIMENS: Duodenal biopsies Gastric biopsies GE junction biopsies DISPOSITION: Transfer back to the floor Stable PLAN: 1. Await for biopsy result 2. Will place pt on Protonix 40 mg bid IV 3. Recommend patient have an NG tube reinserted to low intermittent suction as patient has high suspicion for having ongoing bowel obstruction 4. Keep head end elevated to 30 at all times 5. Get surgical consult for suspected small-bowel obstruction 6. Start Clinimix 1 L per 24 hours and keep patient NPO except for ice chips RAMYA LEVY MD Oct 08, 2024 10:40 Operative Report DATE OF OPERATION: 10/12/24 PROCEDURE: Diagnostic Colonoscopy. PREOPERATIVE INDICATION: The patient is a 69 -year-old male undergoing colonoscopy for evaluation of bowel obstruction and ileus constipation and rectal bleeding POSTOPERATIVE DIAGNOSES: 1. Patient had mild tortuosity and redundancy of the colon 2. 1+ internal hemorrhoids otherwise normal examination up to the cecum and terminal ileum with no active bleeding at this time PROCEDURE PERFORMED BY: Ramya Levy M.D. SCOPE: Olympus videocolonoscope. ASA CLASS: 3. PREOPERATIVE MEDICATIONS: Mac kristina, Kwan Sanabria PROCEDURE IN DETAIL: After obtaining an informed consent, the patient was placed on left lateral decubitus position. He was then sedated with the above medications. A rectal examination was performed that was normal. The colonoscope was then passed through the anus into the rectosigmoid and through the descending, transverse, and ascending colon up to the cecum with visualization of the appendiceal orifice, base of the cecum and the ileocecal valve. The colonoscope was then withdrawn. The distal 3-5 cm of the terminal ileum were normal No polyps or masses were seen. There was no colitis or diverticular disease. There was liquid stool in the colon that was aspirated Patient had a somewhat long tortuous and redundant colon. Patient had normal liquid brown stool and no fresh or old blood in the colon On retroflexion and straight on view he had 1+ internal hemorrhoids with no active bleeding at this time The patient tolerated the procedure well without difficulty. WITHDRAWAL TIME: 9 minute QUALITY OF THE PREP: [place] Bowel Prep score: 8. COMPLICATIONS : None SPECIMENS: None DISPOSITION: Transfer back to the floor Stable PLAN: 1. Repeat colonoscopy in 10 years 2. Resume GI soft diet advance as tolerated 3. Local anorectal hemorrhoidal care 4. Patient is stable for discharge from GI point of view 5. Outpatient follow up with GI Services as needed 6. Maintained on Protonix and Carafate due to hiatal hernia and GERD RAMYA LEVY MD Condition at Discharge: Stable Final Diagnosis/Problems List GI bleed, likely upper GI Small bowel obstruction, resolved Hyperlipidemia ALOC likely due to metabolic encephalopathy due to questionable sepsis/hepatic encephalopathy Acute hypoxic respiratory failure likely due to sepsis Suspected small bowel obstruction, resolved Cholelithiasis Because cirrhosis Chronic appearing compression fraction of L4 vertebral body History of arthritis Hyponatremia, corrected History of schizophrenia Hypothyroidism Hematuria, resolved 2 cm sliding-type hiatal hernia Grade B to C erosive esophagitis Multiple distal esophageal ulcers Gastroduodenitis with inflammatory changes with pyloric channel Mild tortuosity and redundancy of colon 1+ internal hemorrhoids Discharge Disposition: Home Discharge Instruct/Medications Diet: Regular Activity: No Restrictions, As Tolerated Follow Up/Referral: f/u with PCP/DC clinic within 1-2 weeks f/u with surgeon and GI within 2-3 weeks Medications: script sent to pharmacy for Protonix and Carafate Discharge Statement: "Patient was advised to return to the ER or call 911 if any headaches, dizziness, shortness of breath, chest pain, abdominal pain, bleeding, fevers, or worsening of medical condition. Patient was counseled about treatment plan, medications, possible side effects, patientverbalized understanding. All questions were answered to the best of my ability. This discharge took greater then 30 minutes in planning, reviewing documentation, counseling the patient, and discussing with other team members." ASSESSMENT ASSESSMENT Assessment GI bleed Small bowel obstruction, resolved Addendum Addendum Addendum I was physically present for the monet portions of the service provided to patient by THE RESIDENT. I have reviewed the documentation, discussed the case with resident and agree with the resident's documentation except as noted. Also the patient's clinical case was discussed with the patient's nurse. This medical document was created using an electronic medical record system with computerized dictation system. Although this document has been carefully reviewed, there might still be some phonetic and typographical errors. These areas are purely typographical due to imperfections of the software programs, and do not reflect any compromise in the patient's medical care. Late signature. Date of Service: Oct 13, 2024 Billing Provider: CRISTINE WISDOM MD Common Visit Codes: 25537-NJA/OBS DISCH DAY >30min PARK SARMIENTO RESIDENT Oct 13, 2024 17:01 CRISTINE WISDOM MD Oct 15, 2024 09:31
--- NOTE | 2024-10-13 21:30 | DVHPN2 ---
Progress Note - Dictate Date Seen: Oct 13, 2024 (Late entryPatient seen at 2:00 p.m.) Medical Necessity Reason Pt with a Central, PICC or Fol: No Subjective Patient has been tolerating diet and moving his bowels Colonoscopy results discussed with patient Hemoglobin hemoglobin stable at 12.7 vital signs Vital Sign Date Time Temp Pulse Resp B/P (MAP) Pulse Ox O2 Delivery O2 Flow Rate FiO2 10/13/24 16:58 98.9 94 20 112/70 (84) 96 98.9 10/13/24 08:00 Room Air* 0 21 Total Intake and Output 10/12/24 10/12/24 10/13/24 15:00 23:00 07:00 Intake Total 100 ml 236 ml 650 ml Output Total 200 ml 600 ml 700 ml Balance -100 ml -364 ml -50 ml objective General Appearance: Alert, Oriented x 3 Respiratory: Clear to auscultation, Normal air movement Cardiovascular: Regular rate, Normal S1, Normal S2 Abdominal: Abdominal distention, mild diffuse tenderness, hypoactive bowel sounds Extremities: No cyanosis, No edema, Normal pulses, No tenderness/swelling laboratory and microbiology Laboratory Tests 10/12/24 07:16 Test 10/12/24 07:16 Range/Units Serum Glucose 116 H 74-106 mg/dL Problems(with codes): (1) Rectal bleeding (2) Coffee ground emesis (3) SBO (small bowel obstruction) (4) Cirrhosis (5) Ascites (6) Dehydration (7) Hematemesis Prognosis Plan Patient has clinically significantly improved He is tolerating diet, moving his bowels, there was no GI bleeding today H&H is stable at 12.3 Discharge planning is in progress Patient was advised not to take aspirin Motrin old blood thinners He should maintain himself on Protonix 40 mg p.o. twice a day and Carafate 1 g p.o. twice a day Discharge planning is in progress, patient to return to [facility] Dietary Evaluation Review Comments: 1. 10/07 Gastric dreanage total 2650 ml, No EN untill Gastric dranage is down to 500ml or less 2. When EN is feasible, consider Jevity 50ml/hr (67g pr 1440kcal), TF plus clinimix will proivde 109.5 g Pro and 1950 kcal to pt. 3. TPN per pharmacy in addition to clinimix i fPO or EN are not the options. Expected Outcomes/Goals: maintain weight, improved GI function, healed wounds if any. Plan discussed with: Patient, Other (Dr Pretty) RAMYA LEVY MD Oct 13, 2024 21:30
== END 2024-10-13 17:50 | disposition home or self-care (01) | DRG 380 ==
LOC: ER 08:16 → EDBD 08:16 → TELE 16:04 → TELE-WESTW 10-07 14:25 → WEST WING 10-09 18:37
PROVIDERS: ADMIT Internal Medicine; ATTEND Internal Medicine
PROC: 0D9670Z Drainage of Stomach with Drainage Device, Via Natural or Artificial Opening (ICD-10-PCS; principal; 2024-10-06)
PROC: 0DB98ZX Excision of Duodenum, Via Natural or Artificial Opening Endoscopic, Diagnostic (ICD-10-PCS; 2024-10-08)
PROC: 0DB68ZX Excision of Stomach, Via Natural or Artificial Opening Endoscopic, Diagnostic (ICD-10-PCS; 2024-10-08)
PROC: 0DB48ZX Excision of Esophagogastric Junction, Via Natural or Artificial Opening Endoscopic, Diagnostic (ICD-10-PCS; 2024-10-08)
PROC: 0DJD8ZZ Inspection of Lower Intestinal Tract, Via Natural or Artificial Opening Endoscopic (ICD-10-PCS; 2024-10-12)
DX: K22.11 Ulcer of esophagus with bleeding (principal); J96.01 Acute respiratory failure with hypoxia; K56.699 Other intestinal obstruction unspecified as to partial versus complete obstruction; J98.11 Atelectasis; M48.56XA Collapsed vertebra, not elsewhere classified, lumbar region, initial encounter for fracture; R18.8 Other ascites; E87.0 Hyperosmolality and hypernatremia; Q43.8 Other specified congenital malformations of intestine; Z59.00 Homelessness unspecified; K29.91 Gastroduodenitis, unspecified, with bleeding; Z20.822 Contact with and (suspected) exposure to COVID-19; E86.0 Dehydration; K74.60 Unspecified cirrhosis of liver; K80.20 Calculus of gallbladder without cholecystitis without obstruction; K44.9 Diaphragmatic hernia without obstruction or gangrene; F20.9 Schizophrenia, unspecified; E03.9 Hypothyroidism, unspecified; E78.5 Hyperlipidemia, unspecified; K64.8 Other hemorrhoids; R31.9 Hematuria, unspecified; K21.9 Gastro-esophageal reflux disease without esophagitis; K59.00 Constipation, unspecified
CPT/HCPCS: 36415; 71045; 74018; 74176; 74250; 80048; 80053; 80069; 80202; 80307; 80320; 81001; 82140; 82962; 83605; 83615; 83690; 83735; 84100; 84478; 84484; 85014; 85018; 85025; 85610; 85730; 86850; 86900; 86901; 87040; 87081; 87086; 87426; 87804; 93005; 97110; 97163; G0378; J0692; J1815; J2250; J2405; J2470; J2704; J3480; J3490